=== PATIENT | female | born 1960 | race Caucasian/White ===

== ENCOUNTER 2020-12-18 21:18 | IRF | payer OTHER, SELFPAY ==
--- NOTE | ~2020-12-18 | CT_ITS ---
EXAMINATION: CT abdomen pelvis wo/w con EXAM DATE: 12/25/2020 14:03 INDICATION: Microhematuria. TECHNIQUE: Spiral CT of the abdomen and pelvis was performed without contrast. The patient was then injected with small bolus intravenous Omnipaque 350, followed by delay of approximately 10 minutes to allow collecting system to opacify. A post contrast scan abdomen and pelvis was performed during inj ection of remaining contrast. A total of 130 cc intravenous contrast was administered. The dose-qiana th product (DLP) for this examination was 2628.95 mGy-cm. The exposure was tailored according to pat ient size (auto mA exposure control), and iterative reconstruction (ASIR) was used as additional dose reduction technique. Correlation is made to KUB same date. FINDINGS: There is no hydronephrosis or nephrolithiasis. The kidneys enhance symmetrically. There a re no suspicious renal lesions. The calyces and opacified portions of ureters are unremarkable, with out filling defects or focal suspicious strictures. The bladder is unremarkable. The uterus is ante verted with small amount of gas in the endometrial cavity. Has been recent instrumentation? The liver, spleen, adrenal glands and pancreas are unremarkable. Gallbladder is unremarkable. No bi liary obstruction. There is no retroperitoneal or pelvic lymphadenopathy. There is moderate scatte red arteriosclerotic disease. The appendix is not positively visualized. There is no pericecal inflammatory change to suggest appe ndicitis. The stomach and small bowel are unremarkable. There is moderate amount of colonic stool. No free intraperitoneal gas. The heart is normal in size. There are no pericardial or pleural e ffusions. The lung bases are unremarkable. There are no osteoblastic or osteolytic lesions identifi ed. IMPRESSION: 1. Endometrial cavity gas, could be sign of recent instrumentation or endometritis. 2. Otherwise unremarkable genitourinary system. Reviewed, dictated and finalized at location A. IMPRESSION: 1. Endometrial cavity gas, could be sign of recent instrumentation or endometr itis. 2. Otherwise unremarkable genitourinary system.
--- NOTE | ~2020-12-18 | XR_ITS ---
XR abdomen/kub 1V 12/25/2020 13:42 Indication: Microhematuria Procedure: KUB Comparison: No prior studies for comparison. Findings: Bowel gas pattern is nonobstructive. Moderate colonic fecal loading. There is a calcificati on in the right mid abdomen at the L3 level, possibly UPJ stone measuring 3 mm. Moderate lumbar spond ylosis with dextroscoliosis. Impression: 1: Possible 3 mm right UPJ stone at the L3 level. Reviewed, dictated and finalized at location A. Impression: 1: Possible 3 mm right UPJ stone at the L3 level.
--- NOTE | 2020-12-18 20:06 | ADMGEN ---
This patient, Vanessa Mahajan, was admitted to [facility] Room 230-02 at 1940. Patient/family oriented to hospital policies and general routines including ID bracelet, bed and alarms, visiting hours, pain management, procedures, bathroom and other care routines, personal items, smoking policy, room service/diet, and visiting hours. Information on how to activate the Rapid Response Team has been discussed. Patient/Family are encouraged to report perceived risks to care and to ask questions if they do not understand what they are told or what they should do.
[2020-12-18 20:38] VITALS: BP 147/60; PULSE 70; RESP 20; TEMP 35.9; O2SAT 98; BMI 32.6
[2020-12-18 21:47] LABS: Hemoglobin A1C 9.6 % (<5.7)
[2020-12-18] MEDS: INSULIN GLARGINE (*BKC) 100 UNITS/ML 24 UNITS SUB-Q (21:59)
[2020-12-18 22:03] LABS: Glucose Point of Care 121 (65-105)
[2020-12-19 05:24] VITALS: BP 146/69; PULSE 65; RESP 22; TEMP 36.2; O2SAT 98
[2020-12-19 05:28] LABS: Basophils Percent Auto 0.4 % (0.2-1.2); Eosinophils Absolute Auto 0.2 K/mm3 (0-0.3); Hematocrit 23.6 % (37.0-47.0); Hemoglobin 7.2 g/dL (12.0-15.0); Immature Granulocyte Absolute 0.05 K/mm3 (0.00-0.031); Immature Granulocyte Percent A 0.7 % (0-0.5); Lymphocytes Absolute Auto 1.62 K/mm3 (0.9-3.2); Mean Corpuscular HGB Conc 30.5 g/dl (32-36); Mean Corpuscular Hemoglobin 28.7 pg (26-34); Mean Platelet Volume 9.4 fl (7.4-10.4); Monocytes Absolute Auto 0.6 K/mm3 (0.1-0.6); Monocytes Percent Auto 7.9 % (2.6-8.5); Neutrophils Absolute Auto 4.6 K/mm3 (1.3-6.7); Platelet Count Result 259 k/mm3 (150-375); Red Blood Count 2.51 M/mm3 (4.2-5.4); Red Cell Distribution Width 17.2 % (11.5-14.5); White Blood Count 7.1 K/mm3 (4.5-10.0)
[2020-12-19 05:29] LABS: Anion Gap -3 mmol/L (8-16); Blood Urea Nitrogen 19 mg/dL (7-17); Calcium 7.4 mg/dL (8.4-10.2); Carbon Dioxide 36 mmol/L (22-30); Chloride 107 mmol/L (98-107); Estimated CRCL calculation 88 ml/min; Estimated Glomerular Filt Rate > 60; Glucose 85 mg/dL (65-105); Potassium 3.8 mmol/L (3.4-5.0); Sodium 140 mmol/L (137-145)
[2020-12-19 06:16] LABS: Glucose Point of Care 84 (65-105)
[2020-12-19 07:15] LABS: Hemoglobin A1C 9.5 % (<5.7)
[2020-12-19] MEDS: ENOXAPARIN 40 MG/0.4 ML SYRINGE SUB-Q (09:02)
[2020-12-19] MEDS: ASPIRIN 325 MG ENTERIC TABLET PO (09:03)
[2020-12-19] MEDS: ATORVASTATIN 10 MG TABLET PO (09:03)
[2020-12-19] MEDS: POTASSIUM CHLORIDE 20 MEQ TABLET.ER PO (09:03)
[2020-12-19] MEDS: BUMETANIDE 1 MG TABLET 2 MG PO (09:03)
[2020-12-19] MEDS: LOSARTAN POTASSIUM 25 MG TABLET PO (09:03)
[2020-12-19] MEDS: INSULIN ASPART (*BKC) 100 UNITS/ML SUB-Q (09:22)
--- NOTE | 2020-12-19 09:23 | WPDREHABHP ---
H&P: HPI History of Present Illness Date/Time: 12/19/20 09:23 Chief Complaint: RIGHT BKA, UNCONTROLED DM Narrative: The patient is a 60 yo female with a past medical history of COPD,CRI, uncontrolled DM, HTN, HLD, and severe PVD who presented to [facility] on 12/07/2020 with right lower extremity diabetic foot infection. Podiatry was consulted and patient underwent an I&D and midfoot amputation on 12/08/2020 with for acute osteomyelitis and septic arthritis. Infectious Disease Dr Sibley was also consulted and place the patient on IV antibiotics. The wound continued to deteriorate and vascular surgeon, Dr Ryan was consulted. On 12/11/2020 patient underwent a right below-knee amputation by Dr. roman iverson. Postoperatively patient experienced the followin. acute blood loss anemia hemoglobin was 7.6 protocol did not warrant transfusion until below 7. 2.Hyponatremia which resolved. 3. Acute postoperative pain currently pain is managed 4. hypocalcemia was repleted and currently remains low. 5. Uncontrolled diabetes with constant monitoring and adjustments. 6. Left arm thrombophlebitis patient was started on IV vancomycin which infiltrated causing the phlebitis. Patient will be discharged on doxycycline 100 mg b.i.d. times 10 days. Of note this was not on the transfer order sheet. I spoke with Dr. Greene office to determine if doxycycline was to be ordered at time of discharge. They responded that ID wanted Doxy for treatment and provided me with the dosing. 7. Hypoalbuminemia not resolved, will need ongoing monitoring. The patient will require both physical therapy and occupational therapy to return to her prior level of independence. Given the patient's uncontrolled diabetes mellitus and severe peripheral vascular disease the potential for declining condition and readmission are high. This warrants inpatient physician monitoring and management. Joie are to be removed in 5 weeks from surgery day. IV vancomycin was discontinued on 12/16/2020 patient will be starting doxycycline 100 mg b.i.d. times 10 days for the thrombophlebitis. Patient will be discharged on Lovenox for DVT prophylaxis until 30 days from 12/18/2020. COVID: The patient has not traveled outside the [place] are had contact with someone who is ill at his travel outside the [place] in the past 21 days. The patient has not traveled to an area of the [place] that is experiencing known transmission of the Coronavirus has not had close personal contact with anyone that has had exposure. The patient does not have a fever. The patient is not experiencing lowers prior gilbert illness symptoms. The patient does however have COPD at baseline. COVID test negative on 12/18/2020. Therapy was initiated at the acute care facility and the patient transferred to us from [facility] on 12/18/2020. HISTORY OF PRESENT ILLNESS: The patient's primary rehab impairment category is amputation lower extremity The etiologic diagnosis is severe peripheral vascular diagnosis with right below-knee amputation I saw this patient [id number] on 12/19/2020 Therapy was initiated at the acute care facility and the patient transferred to us from [facility] on 12/18/2020 FALLS OR SURGERIES: The patient has had major surgeries in the 100 days prior to admission. a midfoot amputation on 12/08/2020. Patient also underwent a right below-knee amputation on 12/11/2020. She has had no falls. She has had no falls with injury in the past year PRIOR LEVEL OF FUNCTION: Eating was [INDEPENDENT] Oral Care was [INDEPENDENT] Toileting Hygiene was [INDEPENDENT] Shower/Bathing was [INDEPENDENT] Upper Body Dressing was [INDEPENDENT] Lower Body Dressing was [INDEPENDENT] Donning/[place] Footwear was [INDEPENDENT] Rolling Left and Right was [INDEPENDENT] Sit to Lying was [INDEPENDENT] Lying to Sitting was [INDEPENDENT] Sit to Stand was [INDEPE
[2020-12-19] MEDS: DOXYCYCLINE HYCLATE 100 MG TABLET PO ×2 (10:41→21:27)
[2020-12-19 11:56] LABS: Glucose Point of Care 181 (65-105)
[2020-12-19] MEDS: INSULIN ASPART (*BKC) 100 UNITS/ML 10 UNITS SUB-Q (12:00)
[2020-12-19 12:59] VITALS: BMI 32.6
[2020-12-19 14:00] VITALS: BP 144/58; PULSE 63; RESP 18; TEMP 36.7; O2SAT 100
[2020-12-19 17:08] LABS: Glucose Point of Care 82 (65-105)
[2020-12-19 20:29] VITALS: BP 140/61; PULSE 86; RESP 20; TEMP 36.6; O2SAT 99
[2020-12-19 20:54] LABS: Glucose Point of Care 146 (65-105)
[2020-12-19] MEDS: INSULIN GLARGINE (*BKC) 100 UNITS/ML 24 UNITS SUB-Q (21:27)
[2020-12-20 05:26] VITALS: BP 144/64; PULSE 57; RESP 22; TEMP 36.3; O2SAT 100
[2020-12-20 06:53] LABS: Glucose Point of Care 119 (65-105)
[2020-12-20 08:00] VITALS: PULSE 57; RESP 22; O2SAT 100
[2020-12-20] MEDS: ENOXAPARIN 40 MG/0.4 ML SYRINGE SUB-Q (09:13)
[2020-12-20] MEDS: LOSARTAN POTASSIUM 25 MG TABLET PO (09:13)
[2020-12-20] MEDS: ATORVASTATIN 10 MG TABLET PO (09:13)
[2020-12-20] MEDS: BUMETANIDE 1 MG TABLET 2 MG PO (09:14)
[2020-12-20] MEDS: ASPIRIN 325 MG ENTERIC TABLET PO (09:14)
[2020-12-20] MEDS: POTASSIUM CHLORIDE 20 MEQ TABLET.ER PO (09:14)
[2020-12-20] MEDS: DOXYCYCLINE HYCLATE 100 MG TABLET PO ×2 (09:14→20:55)
--- NOTE | 2020-12-20 09:20 | RPD ---
INDIVIDUALIZED PLAN OF CARE FOR Vanessa Mahajan Brief Synthesis of Pre-Admission Screen, Post-Admission Evaluation and Therapy Evaluations: The patient presents to rehab with severe peripheral vascular disease. Comorbidities include s/p right [id number], hypertension, chronic obstructive pulmonary disease, chronic renal insufficiency, uncontrolled diabetes mellitus, hyperlipidemia, left arm thrombophlebitis, hypoalbuminemia, normocytic anemia, hyponatremia, acute blood loss anemia, acute postoperative pain, severe sepsis. The patient requires physician services for medical oversight, management of post-op complications in the setting of present comorbidities, management of diabetes mellitus diagnosis, and pain management. Post-op complications have included acute blood loss anemia, uncontrolled diabetes mellitus, hypocalcemia, hyponatremia, hypoalbuminemia, and left arm thrombophlebitis. The patient requires nursing services for anticoagulation therapy, diabetes training, DVT prophylactics, IV administration PRN, infection protection, medication management and education, pressure relief, and wound care. 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 Treatments may include: Therapeutic Exercise, Gait Training, Neuromuscular Re-education, Transfer Training, Community Reintegration, Bed Mobility, Patient/Family Education, Wheelchair Mobility Group Therapy/Concurrent Therapy Rationales: -Improve attention span during functional activities in a distracted environment. -Enhance problem solving and/or adequate judgment skills during functional activities in a distracted environment. -Promote increased safety awareness in a distracted environment to reduce fall risk with functional tasks, transfers, and ambulation to allow a more safe, self-sufficient return to the home environment. -Improve dynamic balance skills to promote safety and independence with functional activities in a distracted environment for maximum gain. Occupational Therapy: 5 days per week for 90 minutes for the anticipated length of stay. Treatments may include: Therapeutic Exercise, Therapeutic Activity, Cognitive Training, Self-Care Transfer Training, Community Reintegration, Home Management, Patient/Family Education, Wheelchair Mobility Training, Energy Conservation Training Group Therapy/Concurrent Therapy Rationales: -Allow therapist to observe and teach generalization and carry-over of skills learned in individual therapy. -Enhance problem solving and sequencing skills during therapeutic activities in a distracted environment. -Promote increased safety awareness in a realistic setting to reduce fall risk with functional tasks due to visual and verbal distractions. -Increase functional level with ADLs, ADL transfers and use of adaptive equipment through therapeutic activities with others while promoting safety to allow a more safe, self-sufficient return home. Medical Prognosis: Good Anticipated Length of Stay: 14 days Rehab Goals: Eating Goal: 06-Independent Oral Hygiene Goal: 06-Independent Toileting Hygiene Goal: 02-Substantial/Maximal Assistance Shower/Bathe Self Goal: 04-Supervision or Touching Assistance Upper Body Dressing Goal: 05-Setup or Clean Up Assistance Lower Body Dressing Goal: 05-Setup or Clean Up Assistance Putting On/Taking Off Footwear Goal: 05-Setup or Clean Up Assistance Rolling Left and Right Goal: 06-Independent Sit to Lying Goal: 06-Independent Lying to Sitting on Side of Bed Goal: 06-Independent Sit to Stand Goal: 03-Partial/Moderate Assistance Chair/[id number] Transfer Goal: 03-Partial/Moderate Assistance Toilet Transfer Goal: 03-Partial/Moderate Assistance Car Transfer Goal: 03-Partial/Moderate Assist
--- NOTE | 2020-12-20 09:20 | WPDNEURORHBP ---
Subjective Date/time seen: 12/20/20 09:20 Interval history: Patient underwent a RBKA and has been admitted for TRC. Patient mood is somewhat flat. Patient voices no complaints. Review of Systems Review of Systems: All systems reviewed & are unremarkable except as noted in HPI and below Genitourinary: Genitourinary: Reports urinary incontinence and Reports urinary urgency Functional Status Transfers Ability Ability to Transfer In/Out of Chair: Maximum Assistance X 2 Exam Narrative: Exam Narrative: Patient is in no acute distress. Head is normocephalic. Patient is wearing glasses. Speech is fluent. Patient is edentulous. Heart rate and rhythm is regular without murmurs. Lungs sounds are distant but clear. Abdomen is obese nontender positive bowel sounds. Musculoskeletal exam right upper extremity strength is 4+ out of 5 Except for right 4th and 5th digits which reveal some muscle wasting and decreased sensation. Sensory losses noted to the hands and feet in a diabetic neuropathy pattern. Left upper extremity is in a stockinette with moderate/min edema noted from elbow down. Redness is noted with minimal warmth is present. Left lower extremity strength is essentially 3+ to 4-. Right lower extremity reveals below-knee amputation. At time of dictation incision was not observed. Objective Data Vital Signs Vital Signs: Vital Signs - 24 hr 12/19/20 14:00 12/19/20 20:29 12/20/20 05:26 Temperature 36.7 C 36.6 C 36.3 C L Pulse Rate 63 86 57 L Respiratory Rate 18 20 22 H Blood Pressure 144/58 H 140/61 144/64 H Pulse Oximetry 100 99 100 Intake/Output Intake/Output: Intake & Output 12/17/20 12/18/20 12/19/20 12/20/20 23:59 23:59 23:59 23:59 Intake Total 720 Balance 720 Meds/Results Medications: Active Medications Generic Name Dose Route Start Last Admin Trade Name Freq PRN Reason Stop Dose Admin Hydrocodone Bitart/Acetaminophen 1 tab 12/18/20 21:06 Hydrocodone/Acetaminophen (*Crx) 5-325 Mg Tablet PO Q4H PRN Pain Rated 4-6 Aspirin 325 mg 12/19/20 09:00 12/20/20 09:14 Aspirin 325 Mg Enteric Tablet PO 325 mg DAILY JL Administration Atorvastatin Calcium 10 mg 12/19/20 09:00 12/20/20 09:13 Atorvastatin 10 Mg Tablet PO 10 mg DAILY JL Administration Bumetanide 2 mg 12/19/20 09:00 12/20/20 09:14 Bumetanide 1 Mg Tablet PO 2 mg DAILY JL Administration Dextrose 12.5 gm 12/18/20 21:09 Dextrose 50% 25 Gm/50 Ml Syringe IV PUSH PRN PRN Hypoglycemia Protocol Doxycycline Hyclate 100 mg 12/19/20 09:45 12/20/20 09:14 Doxycycline Hyclate 100 Mg Tablet PO 12/28/20 21:01 100 mg Q12HR JL Administration Enoxaparin Sodium 40 mg 12/19/20 09:00 12/20/20 09:13 Enoxaparin 40 Mg/0.4 Ml Syringe SUB-Q 40 mg DAILY JL Administration Glucagon 1 mg 12/18/20 21:09 Glucagon For Inj 1 Mg Vial IM PRN PRN Hypoglycemia Protocol Glucose 15 gm 12/18/20 21:09 Glucose Oral Gel 15 Gm Of Glucse In 37.5 Gm Tube PO PRN PRN Hypoglycemia Protocol Dextrose 1,000 mls @ 100 mls/hr 12/18/20 21:09 Dextrose 5% 1,000 Ml IVPB PRN PRN Hypoglycemia Protocol Insulin Aspart 4 - 8 units 12/19/20 17:00 12/20/20 09:16 Insulin Aspart (*Bkc) 100 Units/Ml SUB-Q Not Given TIDWM [facility] Protocol Insulin Glargine 24 units 12/18/20 21:15 12/19/20 21:27 Insulin Glargine (*Bkc) 100 Units/Ml SUB-Q 24 units HS JL Administration Losartan Potassium 25 mg 12/19/20 09:00 12/20/20 09:13 Losartan Potassium 25 Mg Tablet PO 25 mg DAILY JL Administration Potassium Chloride 20 meq 12/19/20 08:00 12/20/20 09:14 Potassium Chloride 20 Meq Tablet.Er PO 20 meq DAILY@0800 JL Administration Senna/Docusate Sodium 1 tab 12/18/20 21:06 Senna/Docusate Sodium Tablet PO BID PRN Constipation Labs Labs: Laboratory Results - last 24 hr 12/19/20
[2020-12-20 12:13] LABS: Glucose Point of Care 143 (65-105)
--- NOTE | 2020-12-20 12:16 | PC.NURSE ---
Patient voided large amounts of urine in bedpan and bladder scanned and got 221 cc on screen. Will continue to monitor.
--- NOTE | 2020-12-20 12:27 | WPDNEURORHBP ---
Subjective Date/time seen: 12/20/20 12:27 Interval history: Patient underwent a RBKA and has been admitted for TRC. Patient mood is somewhat flat. Pain to LUE from phlebitis is improving. Review of Systems Review of Systems: All systems reviewed & are unremarkable except as noted in HPI and below Genitourinary: Genitourinary: Reports urinary incontinence and Reports urinary urgency Functional Status Transfers Ability Ability to Transfer In/Out of Chair: Maximum Assistance X 2 Exam Narrative: Exam Narrative: Patient is in no acute distress. Head is normocephalic. Patient is wearing glasses. Speech is fluent. Patient is edentulous. Heart rate and rhythm is regular without murmurs. Lungs sounds are distant but clear. Abdomen is obese nontender positive bowel sounds. Musculoskeletal exam right upper extremity strength is 4+ out of 5 Except for right 4th and 5th digits which reveal some muscle wasting and decreased sensation. Sensory losses noted to the hands and feet in a diabetic neuropathy pattern. Left upper extremity is in a stockinette with improving edema. Fingers remained quite swollen. Redness is noted. No warmth is present. Left lower extremity strength is essentially 3+ to 4-. Right lower extremity reveals below-knee amputation. Patient is requiring max assistance of 2 for transfers. Patient is incontinent at times. Objective Data Vital Signs Vital Signs: Vital Signs - 24 hr 12/19/20 14:00 12/19/20 20:29 12/20/20 05:26 Temperature 36.7 C 36.6 C 36.3 C L Pulse Rate 63 86 57 L Respiratory Rate 18 20 22 H Blood Pressure 144/58 H 140/61 144/64 H Pulse Oximetry 100 99 100 Intake/Output Intake/Output: Intake & Output 12/17/20 12/18/20 12/19/20 12/20/20 23:59 23:59 23:59 23:59 Intake Total 720 120 Balance 720 120 Meds/Results Medications: Active Medications Generic Name Dose Route Start Last Admin Trade Name Freq PRN Reason Stop Dose Admin Hydrocodone Bitart/Acetaminophen 1 tab 12/18/20 21:06 Hydrocodone/Acetaminophen (*Crx) 5-325 Mg Tablet PO Q4H PRN Pain Rated 4-6 Aspirin 325 mg 12/19/20 09:00 12/20/20 09:14 Aspirin 325 Mg Enteric Tablet PO 325 mg DAILY JL Administration Atorvastatin Calcium 10 mg 12/19/20 09:00 12/20/20 09:13 Atorvastatin 10 Mg Tablet PO 10 mg DAILY JL Administration Bumetanide 2 mg 12/19/20 09:00 12/20/20 09:14 Bumetanide 1 Mg Tablet PO 2 mg DAILY JL Administration Dextrose 12.5 gm 12/18/20 21:09 Dextrose 50% 25 Gm/50 Ml Syringe IV PUSH PRN PRN Hypoglycemia Protocol Doxycycline Hyclate 100 mg 12/19/20 09:45 12/20/20 09:14 Doxycycline Hyclate 100 Mg Tablet PO 12/28/20 21:01 100 mg Q12HR JL Administration Enoxaparin Sodium 40 mg 12/19/20 09:00 12/20/20 09:13 Enoxaparin 40 Mg/0.4 Ml Syringe SUB-Q 40 mg DAILY JL Administration Glucagon 1 mg 12/18/20 21:09 Glucagon For Inj 1 Mg Vial IM PRN PRN Hypoglycemia Protocol Glucose 15 gm 12/18/20 21:09 Glucose Oral Gel 15 Gm Of Glucse In 37.5 Gm Tube PO PRN PRN Hypoglycemia Protocol Dextrose 1,000 mls @ 100 mls/hr 12/18/20 21:09 Dextrose 5% 1,000 Ml IVPB PRN PRN Hypoglycemia Protocol Insulin Aspart 4 - 8 units 12/19/20 17:00 12/20/20 09:16 Insulin Aspart (*Bkc) 100 Units/Ml SUB-Q Not Given TIDWM JL Protocol Insulin Glargine 24 units 12/18/20 21:15 12/19/20 21:27 Insulin Glargine (*Bkc) 100 Units/Ml SUB-Q 24 units HS JL Administration Losartan Potassium 25 mg 12/19/20 09:00 12/20/20 09:13 Losartan Potassium 25 Mg Tablet PO 25 mg DAILY JL Administration Potassium Chloride 20 meq 12/19/20 08:00 12/20/20 09:14 Potassium Chloride 20 Meq Tablet.Er PO 20 meq DAILY@0800 JL Administration Senna/Docusate Sodium 1 tab 12/18/20 21:06 Senna/Docusate Sodium Tablet PO BID PRN Constipation La
[2020-12-20 14:00] VITALS: BP 142/64; PULSE 76; RESP 20; TEMP 36.6; O2SAT 96
[2020-12-20 16:42] LABS: Glucose Point of Care 243 (65-105)
[2020-12-20] MEDS: INSULIN ASPART (*BKC) 100 UNITS/ML SUB-Q (17:44)
[2020-12-20 20:30] VITALS: PULSE 76; RESP 20; O2SAT 96
[2020-12-20] MEDS: INSULIN GLARGINE (*BKC) 100 UNITS/ML 24 UNITS SUB-Q (20:55)
[2020-12-20 21:03] LABS: Glucose Point of Care 270 (65-105)
[2020-12-20 22:00] VITALS: BP 133/59; PULSE 58; RESP 16; TEMP 36.6; O2SAT 98
[2020-12-21 04:59] VITALS: BP 146/65; PULSE 58; RESP 18; TEMP 36.4; O2SAT 100
[2020-12-21 06:46] LABS: Glucose Point of Care 92 (65-105)
[2020-12-21 08:00] VITALS: PULSE 58; RESP 18; O2SAT 100
[2020-12-21] MEDS: DOXYCYCLINE HYCLATE 100 MG TABLET PO ×2 (08:54→21:24)
[2020-12-21] MEDS: POTASSIUM CHLORIDE 20 MEQ TABLET.ER PO (08:54)
[2020-12-21] MEDS: ASPIRIN 325 MG ENTERIC TABLET PO (08:54)
[2020-12-21] MEDS: ENOXAPARIN 40 MG/0.4 ML SYRINGE SUB-Q (08:54)
[2020-12-21] MEDS: ATORVASTATIN 10 MG TABLET PO (08:55)
[2020-12-21] MEDS: LOSARTAN POTASSIUM 25 MG TABLET PO (08:55)
[2020-12-21] MEDS: BUMETANIDE 1 MG TABLET 2 MG PO (08:55)
--- NOTE | 2020-12-21 10:20 | WPDNEURORHBP ---
Subjective Date/time seen: 12/21/20 10:20 Interval history: Patient underwent a RBKA and has been admitted for TRC. Patient mood is somewhat flat. Pain to LUE from phlebitis is improving. Review of Systems Review of Systems: All systems reviewed & are unremarkable except as noted in HPI and below Genitourinary: Genitourinary: Reports nocturia and Reports urinary incontinence Functional Status Transfers Ability Ability to Transfer In/Out of Chair: Maximum Assistance X 2 Exam Narrative: Exam Narrative: Patient is in no acute distress. Head is normocephalic. Patient is wearing glasses. Speech is fluent. Patient is edentulous. Heart rate and rhythm is regular without murmurs. Lungs sounds are distant but clear. Abdomen is obese nontender positive bowel sounds. Musculoskeletal exam right upper extremity strength is 4+ out of 5 Except for right 4th and 5th digits which reveal some muscle wasting and decreased sensation. Sensory losses noted to the hands and feet in a diabetic neuropathy pattern. Left upper extremity is in a stockinette with improving edema. Fingers remained quite swollen. Redness is noted. No warmth is present. Left lower extremity strength is essentially 3+ to 4-. Right lower extremity reveals below-knee amputation. Patient is requiring min assist with sliding board transfers. Patient is incontinent at times. Objective Data Vital Signs Vital Signs: Vital Signs - 24 hr 12/20/20 14:00 12/20/20 20:30 12/20/20 22:00 Temperature 36.6 C 36.6 C Pulse Rate 76 76 58 L Respiratory Rate 20 20 16 Blood Pressure 142/64 H 133/59 L Pulse Oximetry 96 96 98 12/21/20 04:59 Temperature 36.4 C Pulse Rate 58 L Respiratory Rate 18 Blood Pressure 146/65 H Pulse Oximetry 100 Intake/Output Intake/Output: Intake & Output 12/18/20 12/19/20 12/20/20 12/21/20 23:59 23:59 23:59 23:59 Intake Total 720 600 240 Balance 720 600 240 Meds/Results Medications: Active Medications Generic Name Dose Route Start Last Admin Trade Name Freq PRN Reason Stop Dose Admin Hydrocodone Bitart/Acetaminophen 1 tab 12/18/20 21:06 Hydrocodone/Acetaminophen (*Crx) 5-325 Mg Tablet PO Q4H PRN Pain Rated 4-6 Aspirin 325 mg 12/19/20 09:00 12/21/20 08:54 Aspirin 325 Mg Enteric Tablet PO 325 mg DAILY JL Administration Atorvastatin Calcium 10 mg 12/19/20 09:00 12/21/20 08:55 Atorvastatin 10 Mg Tablet PO 10 mg DAILY JL Administration Bumetanide 2 mg 12/19/20 09:00 12/21/20 08:55 Bumetanide 1 Mg Tablet PO 2 mg DAILY JL Administration Dextrose 12.5 gm 12/18/20 21:09 Dextrose 50% 25 Gm/50 Ml Syringe IV PUSH PRN PRN Hypoglycemia Protocol Doxycycline Hyclate 100 mg 12/19/20 09:45 12/21/20 08:54 Doxycycline Hyclate 100 Mg Tablet PO 12/28/20 21:01 100 mg Q12HR JL Administration Enoxaparin Sodium 40 mg 12/19/20 09:00 12/21/20 08:54 Enoxaparin 40 Mg/0.4 Ml Syringe SUB-Q 40 mg DAILY JL Administration Glucagon 1 mg 12/18/20 21:09 Glucagon For Inj 1 Mg Vial IM PRN PRN Hypoglycemia Protocol Glucose 15 gm 12/18/20 21:09 Glucose Oral Gel 15 Gm Of Glucse In 37.5 Gm Tube PO PRN PRN Hypoglycemia Protocol Dextrose 1,000 mls @ 100 mls/hr 12/18/20 21:09 Dextrose 5% 1,000 Ml IVPB PRN PRN Hypoglycemia Protocol Insulin Aspart 4 - 8 units 12/19/20 17:00 12/21/20 08:55 Insulin Aspart (*Bkc) 100 Units/Ml SUB-Q Not Given TIDWM JL Protocol Insulin Glargine 24 units 12/18/20 21:15 12/20/20 20:55 Insulin Glargine (*Bkc) 100 Units/Ml SUB-Q 24 units HS JL Administration Losartan Potassium 25 mg 12/19/20 09:00 12/21/20 08:55 Losartan Potassium 25 Mg Tablet PO 25 mg DAILY JL Administration Potassium Chloride 20 meq 12/19/20 08:00 12/21/20 08:54 Potassium Chloride 20 Meq Tablet.Er PO 20 meq DAILY@0800 JL Administration Senna/Docusa
[2020-12-21 12:01] LABS: Glucose Point of Care 105 (65-105)
[2020-12-21 14:00] VITALS: BP 158/69; PULSE 86; RESP 18; TEMP 36.4; O2SAT 100
--- NOTE | 2020-12-21 16:34 | PC.NURSE ---
Patient states doesnt realize she needs to void and then realizes she is wet. Depends changed numerous times throughout the shift.
[2020-12-21 16:51] LABS: Glucose Point of Care 187 (65-105)
[2020-12-21] MEDS: INSULIN GLARGINE (*BKC) 100 UNITS/ML 24 UNITS SUB-Q (21:24)
[2020-12-21 21:55] LABS: Glucose Point of Care 282 (65-105)
[2020-12-21 22:00] VITALS: BP 154/69; PULSE 66; RESP 18; TEMP 36.7; O2SAT 96
[2020-12-22 06:00] VITALS: BP 138/85; PULSE 86; RESP 18; TEMP 36.3; O2SAT 100
[2020-12-22 06:53] LABS: Glucose Point of Care 55 (65-105)
[2020-12-22 06:53] LABS: Glucose Point of Care 47 (65-105)
[2020-12-22 06:53] LABS: Glucose Point of Care 45 (65-105)
[2020-12-22 06:54] LABS: Glucose Point of Care 85 (65-105)
--- NOTE | 2020-12-22 08:42 | WPDNEURORHBP ---
Subjective Date/time seen: 12/22/20 08:42 Interval history: Patient underwent a RBKA and has been admitted for TRC. Blood sugar was low. Patient did not have any symptoms of hypoglycemia but being cold. Patient mood is somewhat flat. Pain to LUE from phlebitis is improving. Review of Systems Review of Systems: All systems reviewed & are unremarkable except as noted in HPI and below Genitourinary: Genitourinary: Reports nocturia, Reports urinary incontinence and Reports urinary urgency Functional Status Transfers Ability Ability to Transfer In/Out of Chair: Maximum Assistance X 2 Exam Narrative: Exam Narrative: Patient is in no acute distress. Head is normocephalic. Patient is wearing glasses. Speech is fluent. Patient is edentulous. Heart rate and rhythm is regular without murmurs. Lungs sounds are distant but clear. Abdomen is obese nontender positive bowel sounds. Musculoskeletal exam right upper extremity strength is 4+ out of 5 Except for right 4th and 5th digits which reveal some muscle wasting and decreased sensation. Sensory losses noted to the hands and feet in a diabetic neuropathy pattern. Left upper extremity is in a stockinette with improving edema. Fingers swelling is down. Mininal redness is noted. No warmth is present. Left lower extremity strength is essentially 3+ to 4-. Right lower extremity reveals below-knee amputation. Patient is requiring min assist with sliding board transfers. Patient is incontinent at times. Bladder scans reviewed. Patient has mild urinary retention but is able to void. Will continue PVR Objective Data Vital Signs Vital Signs: Vital Signs - 24 hr 12/21/20 14:00 12/21/20 22:00 12/22/20 06:00 Temperature 36.4 C L 36.7 C 36.3 C L Pulse Rate 86 66 86 Respiratory Rate 18 18 18 Blood Pressure 158/69 H 154/69 H 138/85 Pulse Oximetry 100 96 100 Intake/Output Intake/Output: Intake & Output 12/19/20 12/20/20 12/21/20 12/22/20 23:59 23:59 23:59 23:59 Intake Total 720 600 720 Balance 720 600 720 Meds/Results Medications: Active Medications Generic Name Dose Route Start Last Admin Trade Name Freq PRN Reason Stop Dose Admin Hydrocodone Bitart/Acetaminophen 1 tab 12/18/20 21:06 Hydrocodone/Acetaminophen (*Crx) 5-325 Mg Tablet PO Q4H PRN Pain Rated 4-6 Aspirin 325 mg 12/19/20 09:00 12/21/20 08:54 Aspirin 325 Mg Enteric Tablet PO 325 mg DAILY JL Administration Atorvastatin Calcium 10 mg 12/19/20 09:00 12/21/20 08:55 Atorvastatin 10 Mg Tablet PO 10 mg DAILY JL Administration Bumetanide 2 mg 12/19/20 09:00 12/21/20 08:55 Bumetanide 1 Mg Tablet PO 2 mg DAILY JL Administration Dextrose 12.5 gm 12/18/20 21:09 Dextrose 50% 25 Gm/50 Ml Syringe IV PUSH PRN PRN Hypoglycemia Protocol Doxycycline Hyclate 100 mg 12/19/20 09:45 12/21/20 21:24 Doxycycline Hyclate 100 Mg Tablet PO 12/28/20 21:01 100 mg Q12HR JL Administration Enoxaparin Sodium 40 mg 12/19/20 09:00 12/21/20 08:54 Enoxaparin 40 Mg/0.4 Ml Syringe SUB-Q 40 mg DAILY JL Administration Glucagon 1 mg 12/18/20 21:09 Glucagon For Inj 1 Mg Vial IM PRN PRN Hypoglycemia Protocol Glucose 15 gm 12/18/20 21:09 Glucose Oral Gel 15 Gm Of Glucse In 37.5 Gm Tube PO PRN PRN Hypoglycemia Protocol Dextrose 1,000 mls @ 100 mls/hr 12/18/20 21:09 Dextrose 5% 1,000 Ml IVPB PRN PRN Hypoglycemia Protocol Insulin Aspart 4 - 8 units 12/19/20 17:00 12/22/20 07:55 Insulin Aspart (*Bkc) 100 Units/Ml SUB-Q Not Given TIDWM JL Protocol Insulin Glargine 24 units 12/18/20 21:15 12/21/20 21:24 Insulin Glargine (*Bkc) 100 Units/Ml SUB-Q 24 units HS JL Administration Losartan Potassium 25 mg 12/19/20 09:00 12/21/20 08:55 Losartan Potassium 25 Mg Tablet PO 25 mg DAILY JL Administration Potassium Chloride 20 meq 12/19/20 08:00 12/21/20
[2020-12-22] MEDS: ASPIRIN 325 MG ENTERIC TABLET PO (08:44)
[2020-12-22] MEDS: ATORVASTATIN 10 MG TABLET PO (08:44)
[2020-12-22] MEDS: DOXYCYCLINE HYCLATE 100 MG TABLET PO ×2 (08:44→21:23)
[2020-12-22] MEDS: POTASSIUM CHLORIDE 20 MEQ TABLET.ER PO (08:44)
[2020-12-22] MEDS: ENOXAPARIN 40 MG/0.4 ML SYRINGE SUB-Q (08:44)
[2020-12-22] MEDS: BUMETANIDE 1 MG TABLET 2 MG PO (08:44)
[2020-12-22] MEDS: LOSARTAN POTASSIUM 25 MG TABLET PO (08:44)
[2020-12-22 12:00] LABS: Glucose Point of Care 136 (65-105)
[2020-12-22 14:00] VITALS: BP 145/60; PULSE 72; RESP 16; TEMP 36.2; O2SAT 98
[2020-12-22 16:44] LABS: Glucose Point of Care 186 (65-105)
[2020-12-22 20:16] LABS: Glucose Point of Care 236 (65-105)
[2020-12-22] MEDS: INSULIN GLARGINE (*BKC) 100 UNITS/ML 20 UNITS SUB-Q (21:22)
[2020-12-22 22:00] VITALS: BP 144/61; PULSE 59; RESP 16; TEMP 36.6; O2SAT 99
[2020-12-23 06:00] VITALS: BP 152/66; PULSE 57; RESP 16; TEMP 36.8; O2SAT 99
[2020-12-23 06:17] LABS: Glucose Point of Care 133 (65-105)
[2020-12-23 08:00] VITALS: PULSE 57; RESP 16; O2SAT 99
[2020-12-23] MEDS: POTASSIUM CHLORIDE 20 MEQ TABLET.ER PO (08:55)
[2020-12-23] MEDS: ATORVASTATIN 10 MG TABLET PO (08:55)
[2020-12-23] MEDS: BUMETANIDE 1 MG TABLET 2 MG PO (08:55)
[2020-12-23] MEDS: ASPIRIN 325 MG ENTERIC TABLET PO (08:55)
[2020-12-23] MEDS: LOSARTAN POTASSIUM 25 MG TABLET PO (08:56)
[2020-12-23] MEDS: DOXYCYCLINE HYCLATE 100 MG TABLET PO ×2 (08:56→21:43)
[2020-12-23] MEDS: ENOXAPARIN 40 MG/0.4 ML SYRINGE SUB-Q (08:56)
--- NOTE | 2020-12-23 09:20 | PCPTNOTE ---
Vanessa Mahajan was evaluated for a slide board on 12/23/2020 by this physical therapist gift shop assistant. The slide board will resolve patient's mobility limitations and will be used for ADL's within the home. The patient can safely use the slide board. ?The slide board will resolve the patient?s mobility deficits, including decreased strength, balance, endurance, and non weight bearing precautions on R residual limb. Ansley Bradley, PROCESS DEVELOPMENT ASSOCIATE
--- NOTE | 2020-12-23 11:53 | WPDNEURORHBP ---
Subjective Date/time seen: 12/23/20 11:53 Interval history: Patient underwent a RBKA and has been admitted for TRC. Blood sugar was low. Patient did not have any symptoms of hypoglycemia but being cold. Blood sugars are elevated Patient mood is somewhat flat. Pain to LUE from phlebitis is improving. Review of Systems Review of Systems: All systems reviewed & are unremarkable except as noted in HPI and below Genitourinary: Genitourinary: Reports nocturia, Reports urinary incontinence and Reports urinary urgency Functional Status Transfers Ability Ability to Transfer In/Out of Chair: Moderate Assistance X 2 Exam Narrative: Exam Narrative: Patient is in no acute distress. Head is normocephalic. Patient is wearing glasses. Speech is fluent. Patient is edentulous. Heart rate and rhythm is regular without murmurs. Lungs sounds are distant but clear. Abdomen is obese nontender positive bowel sounds. Musculoskeletal exam right upper extremity strength is 4+ out of 5 Except for right 4th and 5th digits which reveal some muscle wasting and decreased sensation. Sensory losses noted to the hands and feet in a diabetic neuropathy pattern. Left upper extremity is in a stockinette with improving edema. Fingers swelling is down. Mininal redness is noted. No warmth is present. Left lower extremity strength is essentially 3+ to 4-. Right lower extremity reveals below-knee amputation. Patient is requiring min assist with sliding board transfers. Patient is incontinent at times. Bladder scans reviewed. Patient has mild urinary retention but is able to void. Will continue PVR. Patient incontinent at night with PVRs in 200s Objective Data Vital Signs Vital Signs: Vital Signs - 24 hr 12/22/20 14:00 12/22/20 22:00 12/23/20 06:00 Temperature 36.2 C L 36.6 C 36.8 C Pulse Rate 72 59 L 57 L Respiratory Rate 16 16 16 Blood Pressure 145/60 H 144/61 H 152/66 H Pulse Oximetry 98 99 99 12/23/20 08:00 Temperature Pulse Rate 57 L Respiratory Rate 16 Blood Pressure Pulse Oximetry 99 Intake/Output Intake/Output: Intake & Output 12/20/20 12/21/20 12/22/20 12/23/20 23:59 23:59 23:59 23:59 Intake Total 600 720 840 240 Balance 600 720 840 240 Meds/Results Medications: Active Medications Generic Name Dose Route Start Last Admin Trade Name Freq PRN Reason Stop Dose Admin Hydrocodone Bitart/Acetaminophen 1 tab 12/18/20 21:06 Hydrocodone/Acetaminophen (*Crx) 5-325 Mg Tablet PO Q4H PRN Pain Rated 4-6 Aspirin 325 mg 12/19/20 09:00 12/23/20 08:55 Aspirin 325 Mg Enteric Tablet PO 325 mg DAILY JL Administration Atorvastatin Calcium 10 mg 12/19/20 09:00 12/23/20 08:55 Atorvastatin 10 Mg Tablet PO 10 mg DAILY JL Administration Bumetanide 2 mg 12/19/20 09:00 12/23/20 08:55 Bumetanide 1 Mg Tablet PO 2 mg DAILY JL Administration Dextrose 12.5 gm 12/18/20 21:09 Dextrose 50% 25 Gm/50 Ml Syringe IV PUSH PRN PRN Hypoglycemia Protocol Doxycycline Hyclate 100 mg 12/19/20 09:45 12/23/20 08:56 Doxycycline Hyclate 100 Mg Tablet PO 12/28/20 21:01 100 mg Q12HR JL Administration Enoxaparin Sodium 40 mg 12/19/20 09:00 12/23/20 08:56 Enoxaparin 40 Mg/0.4 Ml Syringe SUB-Q 40 mg DAILY JL Administration Glucagon 1 mg 12/18/20 21:09 Glucagon For Inj 1 Mg Vial IM PRN PRN Hypoglycemia Protocol Glucose 15 gm 12/18/20 21:09 Glucose Oral Gel 15 Gm Of Glucse In 37.5 Gm Tube PO PRN PRN Hypoglycemia Protocol Dextrose 1,000 mls @ 100 mls/hr 12/18/20 21:09 Dextrose 5% 1,000 Ml IVPB PRN PRN Hypoglycemia Protocol Insulin Aspart 4 - 8 units 12/19/20 17:00 12/23/20 08:56 Insulin Aspart (*Bkc) 100 Units/Ml SUB-Q Not Given TIDWM [facility] Protocol Insulin Glargine 20 units 12/22/20 21:00 12/22/20 21:22 Insulin Glargine (*Bkc) 100 Units/Ml SUB-Q 20 units HS JL Administrati
[2020-12-23 12:18] LABS: Glucose Point of Care 147 (65-105)
[2020-12-23 14:00] VITALS: BP 148/61; PULSE 82; RESP 18; TEMP 36.6; O2SAT 98
[2020-12-23 17:04] LABS: Glucose Point of Care 195 (65-105)
[2020-12-23 21:45] VITALS: BP 133/61; PULSE 64; RESP 16; TEMP 36.1; O2SAT 98
[2020-12-23] MEDS: INSULIN GLARGINE (*BKC) 100 UNITS/ML 20 UNITS SUB-Q (21:49)
[2020-12-23 22:04] LABS: Glucose Point of Care 248 (65-105)
[2020-12-24 06:00] VITALS: BP 148/79; PULSE 72; RESP 16; TEMP 36.1; O2SAT 100
[2020-12-24 06:52] LABS: Glucose Point of Care 88 (65-105)
[2020-12-24 08:00] VITALS: PULSE 72; RESP 16; O2SAT 100
[2020-12-24 09:00] VITALS: BMI 32.6
[2020-12-24] MEDS: ATORVASTATIN 10 MG TABLET PO (09:39)
[2020-12-24] MEDS: LOSARTAN POTASSIUM 25 MG TABLET PO (09:39)
[2020-12-24] MEDS: ASPIRIN 325 MG ENTERIC TABLET PO (09:39)
[2020-12-24] MEDS: POTASSIUM CHLORIDE 20 MEQ TABLET.ER PO (09:39)
[2020-12-24] MEDS: DOXYCYCLINE HYCLATE 100 MG TABLET PO ×2 (09:40→21:25)
[2020-12-24] MEDS: ENOXAPARIN 40 MG/0.4 ML SYRINGE SUB-Q (09:40)
[2020-12-24] MEDS: BUMETANIDE 1 MG TABLET 2 MG PO (09:40)
[2020-12-24 12:03] LABS: Glucose Point of Care 129 (65-105)
--- NOTE | 2020-12-24 12:36 | PCNFU ---
Nutrition Follow-Up Complete: Altered nutrition related labs related to diabetes mellitus as evidenced by HgbA1C of 9.5%. Goal: Patient to consume 75% of meals or greater on diabetic diet. Patient is meeting goal. No new goal at this time. Pt current nutrition is diabetic consistent carbohydrate diet. Last recorded weight is 106.3 kg. Recommend re-weighing patient prior to discharge. Bowel Motility: + BM 12/21 Labs Reviewed: POC capillary glucose 88 Meds Noted: Lipitor, Senna, Novolog, Lantus, Bumex, Cozaar, Kcl tablet Additional Notes: Spoke with patient. Patient reported her appetite has gotten significantly better since being admitted. She is consuming 100% of most meals and requesting snacks in the evening when she feels hungry. She had no nutritional questions or concerns. Follow up in 7 days.
--- NOTE | 2020-12-24 13:11 | PCNSR ---
On 12/24/20, the student, Jamilah Trujillo, provided care and completed [facility] documentation on this patient. I have reviewed the student's documentation and agree with the findings.
--- NOTE | 2020-12-24 13:46 | WPDNEURORHBP ---
Subjective Date/time seen: 12/24/20 13:46 Interval history: Patient underwent a RBKA and has been admitted for TRC. patient has had fluctuating blood sugars with adjustment of medication and insulin. Blood pressure continues to fluctuate. Patient continues to complain of bladder incontinence. Review of Systems Review of Systems: All systems reviewed & are unremarkable except as noted in HPI and below Functional Status Transfers Ability Ability to Transfer In/Out of Chair: Moderate Assistance X 2 Exam Narrative: Exam Narrative: Patient is in no acute distress. Head is normocephalic. Patient is wearing glasses. Speech is fluent. Patient is edentulous. Heart rate and rhythm is regular without murmurs. Lungs sounds are distant but clear. Abdomen is obese nontender positive bowel sounds. Musculoskeletal exam right upper extremity strength is 4+ out of 5 Except for right 4th and 5th digits which reveal some muscle wasting and decreased sensation. Sensory losses noted to the hands and feet in a diabetic neuropathy pattern. Left upper extremity is in a stockinette with improving edema. Fingers swelling is down. Mininal redness is noted. No warmth is present. Left lower extremity strength is essentially 3+ to 4-. Right lower extremity reveals below-knee amputation. Patient is incontinent at times. Bladder scans reviewed. Patient has mild urinary retention but is able to void. Will continue PVR. Patient incontinent at night with PVRs in 200s. Will obtain urology consult Patient requires standby assistance with sliding board. No gait tested. Patient is independent with wheelchair mobility. Patient requires contact guard with dressing upper extremity and moderate assistance with lower extremity. Bathing is at minimal assistance. Toileting is at max assistance for clothing management. Patient will require help at home for the lower extremities. Objective Data Vital Signs Vital Signs: Vital Signs - 24 hr 12/23/20 14:00 12/23/20 21:45 12/24/20 06:00 Temperature 36.6 C 36.1 C L 36.1 C L Pulse Rate 82 64 72 Respiratory Rate 18 16 16 Blood Pressure 148/61 H 133/61 148/79 H Pulse Oximetry 98 98 100 Intake/Output Intake/Output: Intake & Output 12/21/20 12/22/20 12/23/20 12/24/20 23:59 23:59 23:59 23:59 Intake Total 720 840 720 600 Balance 720 840 720 600 Meds/Results Medications: Active Medications Generic Name Dose Route Start Last Admin Trade Name Christq PRN Reason Stop Dose Admin Hydrocodone Bitart/Acetaminophen 1 tab 12/18/20 21:06 Hydrocodone/Acetaminophen (*Crx) 5-325 Mg Tablet PO Q4H PRN Pain Rated 4-6 Aspirin 325 mg 12/19/20 09:00 12/24/20 09:39 Aspirin 325 Mg Enteric Tablet PO 325 mg DAILY JL Administration Atorvastatin Calcium 10 mg 12/19/20 09:00 12/24/20 09:39 Atorvastatin 10 Mg Tablet PO 10 mg DAILY JL Administration Bumetanide 2 mg 12/19/20 09:00 12/24/20 09:40 Bumetanide 1 Mg Tablet PO 2 mg DAILY JL Administration Dextrose 12.5 gm 12/18/20 21:09 Dextrose 50% 25 Gm/50 Ml Syringe IV PUSH PRN PRN Hypoglycemia Protocol Doxycycline Hyclate 100 mg 12/19/20 09:45 12/24/20 09:40 Doxycycline Hyclate 100 Mg Tablet PO 12/28/20 21:01 100 mg Q12HR JL Administration Enoxaparin Sodium 40 mg 12/19/20 09:00 12/24/20 09:40 Enoxaparin 40 Mg/0.4 Ml Syringe SUB-Q 40 mg DAILY JL Administration Glipizide 5 mg 12/25/20 06:30 Glipizide 5 Mg Tablet PO DAILY@0630 JL Glucagon 1 mg 12/18/20 21:09 Glucagon For Inj 1 Mg Vial IM PRN PRN Hypoglycemia Protocol Glucose 15 gm 12/18/20 21:09 Glucose Oral Gel 15 Gm Of Glucse In 37.5 Gm Tube PO PRN PRN Hypoglycemia Protocol Dextrose 1,000 mls @ 100 mls/hr 12/18/20 21:09 Dextrose 5% 1,000 Ml IVPB PRN PRN Hypoglycemia Protocol Insulin Aspart 4 - 8 units 12/19/20 17:00 12/24/20 12:12
[2020-12-24 14:00] VITALS: BP 140/67; PULSE 70; RESP 16; TEMP 36.1; O2SAT 100
--- NOTE | 2020-12-24 14:17 | WPDURCON ---
Assessment and Plan Assessment and plan (1) Urinary incontinence: Code(s): R32 - Unspecified urinary incontinence <Oanh Luong APRN - Last Filed: 12/24/20 14:42> Status: Acute <Oanh Luong APRN - Last Filed: 12/24/20 14:42> Assessment and Plan: Secondary to incomplete emptying, poor diabetic control and immobility. Patient will need follow up in the office once discharged to further evaluate and rule out neurogenic bladder. <Oanh Luong APRN - Last Filed: 12/24/20 14:42> (2) Urgency of micturition: Code(s): R39.15 - Urgency of urination <Oanh Luong APRN - Last Filed: 12/24/20 14:42> Status: Acute <Oanh Luong APRN - Last Filed: 12/24/20 14:42> Assessment and Plan: Continue bladder scans, if >300cc, will need to call office [phone]. Obtain a UA with reflex to culture. Unfortunately, d/t her elevated residuals, it is best at this time to avoid anti-cholinergics as this may worsen her symptoms and cause retention requiring a catheter. <Oanh Luong APRN - Last Filed: 12/24/20 14:42> (3) Frequency of micturition: Code(s): R35.0 - Frequency of micturition <Oanh Luong APRN - Last Filed: 12/24/20 14:42> Status: Acute <Oanh Luong APRN - Last Filed: 12/24/20 14:42> Urology Consult Note HPI Date Seen: 12/24/20 <Oanh Luong APRN - Last Filed: 12/24/20 14:42> 12/24/20 <Michael Kenyon MD - Last Filed: 12/24/20 14:34> Requesting Physician: Brittany Hidalgo DO <Oanh Luong APRN - Last Filed: 12/24/20 14:42> Primary Care Provider: SELWYN,JOLENE Wayne <Oanh Luong APRN - Last Filed: 12/24/20 14:42> Consult Narrative Narrative: Vanessa Mahajan is a 60 year old female who has been admitted to the rehab unit s/p right BKA at [facility] in early December d/t a right foot wound secondary to uncontrolled diabetes. Since surgery she has developed urgency, frequency and incontinence of urination. She c/o not being able to make it to the commode and being soaked in urine. She has to have help to get to the commode d/t her immobile status post leg amputation and is missing the bedpan when it is offered to her. She has had blood glucose readings as high as 236 while in rehab, but denies dysuria, hematuria, flank pain, abdominal pain, hesitancy or straining to urinate. She denies a history of UTI's, kidney stones or previous OAB problems. I spoke with her nurse after our visit and she states that her PVR's have been around 200cc with a bladder scan. She is currently on antibiotics and is doing well recovering from her procedure. <Oanh Loung, [employer] C[employer] INSULATOR - Last Filed: 12/24/20 14:42> Review of Systems Cardiovascular: Cardiovascular: Reports no additional cardiovascular complaints <Oanh Luong APRN - Last Filed: 12/24/20 14:42> Respiratory: Respiratory: Reports no additional respiratory complaints <Oanh Luong APRN - Last Filed: 12/24/20 14:42> Gastrointestinal: Gastrointestinal: Denies abdominal pain, Denies nausea and Denies vomiting <Oanh Luong APRN - Last Filed: 12/24/20 14:42> Genitourinary: Genitourinary: Reports nocturia, Denies dysuria, Denies flank pain, Reports urinary incontinence, Denies urinary hesitancy and Reports urinary urgency <Oanh Luong APRN - Last Filed: 12/24/20 14:42> Musculoskeletal: Musculoskeletal: Reports abnormal gait <Oanh Luong APRN - Last Filed: 12/24/20 14:42> [facility] Past Medical History Medical History: Medical History COPD (chronic obstructive pulmonary disease) CRI (chronic renal insufficiency) Diabetic neuropathy Hypoalbuminemia Hyponatremia Osteomyelitis of ankle and foot PVD (peripheral vascular disease) Septic arthritis of ankle 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
[2020-12-24 16:40] LABS: Add Urine Microscopic? YES; Appearance Urine Cloudy (Clear); Bilirubin Urine Negative (Negative); Blood Urine Negative (Negative); Color Urine Straw (Yellow); Glucose Urine UA Negative (Negative); Ketones Urine Negative (Negative); Leukocyte Esterase Ur Negative LEU/UL (Negative); Mucus Urine Rare /lpf; Nitrate Urine Negative (Negative); Protein Urine 1+ mg/dL (Negative); Squamous Epithelial Cell Urine Rare /hpf (Few); Urobilinogen Urine Negative mg/dL (<2.0); WBC Urine 0-3 /hpf
[2020-12-24 16:53] LABS: Glucose Point of Care 167 (65-105)
--- NOTE | 2020-12-24 17:46 | PC.NURSE ---
UA with reflex sent to the lab.
[2020-12-24 20:45] VITALS: PULSE 56; RESP 16; O2SAT 99
[2020-12-24] MEDS: INSULIN GLARGINE (*BKC) 100 UNITS/ML 10 UNITS SUB-Q (21:26)
[2020-12-24 22:00] VITALS: BP 149/70; PULSE 56; RESP 16; TEMP 36.6; O2SAT 99
[2020-12-24 22:03] LABS: Glucose Point of Care 251 (65-105)
[2020-12-25 06:00] VITALS: BP 143/65; PULSE 59; RESP 16; TEMP 36.9; O2SAT 100
[2020-12-25] MEDS: glipiZIDE 5 MG TABLET PO (06:30)
[2020-12-25 06:58] LABS: Glucose Point of Care 104 (65-105)
[2020-12-25] MEDS: ASPIRIN 325 MG ENTERIC TABLET PO (09:18)
[2020-12-25] MEDS: BUMETANIDE 1 MG TABLET 2 MG PO (09:18)
[2020-12-25] MEDS: POTASSIUM CHLORIDE 20 MEQ TABLET.ER PO (09:18)
[2020-12-25] MEDS: ATORVASTATIN 10 MG TABLET PO (09:18)
[2020-12-25] MEDS: DOXYCYCLINE HYCLATE 100 MG TABLET PO ×2 (09:19→23:19)
[2020-12-25] MEDS: ENOXAPARIN 40 MG/0.4 ML SYRINGE SUB-Q (09:19)
[2020-12-25] MEDS: LOSARTAN POTASSIUM 25 MG TABLET PO (09:19)
--- NOTE | 2020-12-25 09:45 | WPDNEURORHBP ---
Subjective Date/time seen: 12/25/20 09:45 Interval history: Patient underwent a RBKA and has been admitted for TRC. patient has had fluctuating blood sugars with adjustment of medication and insulin. Glypizide has been initiated with possible addition of Victoza 1.8 Blood pressure remains elevated Patient continues to complain of bladder incontinence. Review of Systems Review of Systems: All systems reviewed & are unremarkable except as noted in HPI and below Genitourinary: Genitourinary: Reports nocturia, Reports urinary incontinence and Reports urinary urgency Functional Status Transfers Ability Ability to Transfer In/Out of Chair: Moderate Assistance X 2 Exam Narrative: Exam Narrative: Patient is in no acute distress. Head is normocephalic. Patient is wearing glasses. Speech is fluent. Patient is edentulous. Heart rate and rhythm is regular without murmurs. Lungs sounds are distant but clear. Abdomen is obese nontender positive bowel sounds. Musculoskeletal exam right upper extremity strength is 4+ out of 5 Except for right 4th and 5th digits which reveal some muscle wasting and decreased sensation. Sensory losses noted to the hands and feet in a diabetic neuropathy pattern. Left upper extremity is in a stockinette with improving edema. Fingers swelling is down. Mininal redness is noted. No warmth is present. Left lower extremity strength is essentially 3+ to 4-. Right lower extremity reveals below-knee amputation. Patient is incontinent at times. Bladder scans reviewed. Patient has mild urinary retention but is able to void. Will continue PVR. Patient incontinent at night with PVRs in 200s. Will obtain urology consult Patient requires standby assistance with sliding board. No gait tested. Patient is independent with wheelchair mobility. Patient requires contact guard with dressing upper extremity and moderate assistance with lower extremity. Bathing is at minimal assistance. Toileting is at max assistance for clothing management. Patient will require help at home for the lower extremities. Objective Data Vital Signs Vital Signs: Vital Signs - 24 hr 12/24/20 14:00 12/24/20 20:45 12/24/20 22:00 Temperature 36.1 C L 36.6 C Pulse Rate 70 56 L 56 L Respiratory Rate 16 16 16 Blood Pressure 140/67 149/70 H Pulse Oximetry 100 99 99 12/25/20 06:00 Temperature 36.9 C Pulse Rate 59 L Respiratory Rate 16 Blood Pressure 143/65 H Pulse Oximetry 100 Intake/Output Intake/Output: Intake & Output 12/22/20 12/23/20 12/24/20 12/25/20 23:59 23:59 23:59 23:59 Intake Total 840 720 960 240 Balance 840 720 960 240 Meds/Results Medications: Active Medications Generic Name Dose Route Start Last Admin Trade Name Freq PRN Reason Stop Dose Admin Hydrocodone Bitart/Acetaminophen 1 tab 12/18/20 21:06 Hydrocodone/Acetaminophen (*Crx) 5-325 Mg Tablet PO Q4H PRN Pain Rated 4-6 Aspirin 325 mg 12/19/20 09:00 12/25/20 09:18 Aspirin 325 Mg Enteric Tablet PO 325 mg DAILY JL Administration Atorvastatin Calcium 10 mg 12/19/20 09:00 12/25/20 09:18 Atorvastatin 10 Mg Tablet PO 10 mg DAILY JL Administration Bumetanide 2 mg 12/19/20 09:00 12/25/20 09:18 Bumetanide 1 Mg Tablet PO 2 mg DAILY JL Administration Dextrose 12.5 gm 12/18/20 21:09 Dextrose 50% 25 Gm/50 Ml Syringe IV PUSH PRN PRN Hypoglycemia Protocol Doxycycline Hyclate 100 mg 12/19/20 09:45 12/25/20 09:19 Doxycycline Hyclate 100 Mg Tablet PO 12/28/20 21:01 100 mg Q12HR JL Administration Enoxaparin Sodium 40 mg 12/19/20 09:00 12/25/20 09:19 Enoxaparin 40 Mg/0.4 Ml Syringe SUB-Q 40 mg DAILY JL Administration Glipizide 5 mg 12/25/20 06:30 12/25/20 06:30 Glipizide 5 Mg Tablet PO 5 mg DAILY@0630 JL Administration Glucagon 1 mg 12/18/20 21:09 Glucagon For Inj 1 Mg Vial IM PRN PRN Hypoglycemia Protocol Glucose 15
--- NOTE | 2020-12-25 10:00 | PCOTNOTE ---
Vanessa Mahajan was evaluated for a drop arm bedside commode and tub transfer bench on 12/25/20 by this occupational therapist. The drop arm bedside commode will resolve patient's toileting limitations as he will need an elevated, level transfer surface for toileting and will be unable to ambulate into bathroom for toileting and will require use of a slide board for all transfers due to new RT BKA complicated by LT arm edema, COPD, DM, renal insufficiency, PAD, PVD, and generalized weakness. The patient is unable to safely complete slide board transfer from w/c to toilet due to uneven surface and decreased balance during transfer. The drop arm bedside commode will be used at bedside to allow for independence with transfer to commode as well as decreased caregiver burden with toileting tasks. The tub transfer bench will resolve the patients inability to transfer to tub for shower/bathing purposes. Mrs. Mahajan is unable to step into tub due to new RT BKA complicated by LT arm edema, COPD, DM, renal insufficiency, PAD, PVD, and generalized weakness. The tub transfer bench will allow patient to transfer into tub using a slide board for shower/bathing purposes within her home. I agree with and certify that the above recommendation is medically necessary. Referring Physician Date
--- NOTE | 2020-12-25 10:59 | WPDUROPN2 ---
Progress Note: A&P Assessment and Plan (1) Frequency of micturition: Code(s): R35.0 - Frequency of micturition Status: Acute Assessment and Plan: Will get a urine culture d/t cloudy urine with microhematuria on UA, continue Doxycycline at this time, will tailor antibiotics if necessary. We discussed trying a low dose Oxybutynin ER 5mg QD to aid in her symptoms, and she understands that with an elevated PVR she is at risk for urinary retention, so she will think about it and we will check back to see if she wants to try it. She is also aware it can take 2-3 weeks to become effective. (2) Urgency of micturition: Code(s): R39.15 - Urgency of urination Status: Acute (3) Urinary incontinence: Code(s): R32 - Unspecified urinary incontinence Status: Acute Assessment and Plan: Likely secondary to either overflow incontinence or immobility. (4) Microhematuria: Code(s): R31.29 - Other microscopic hematuria Status: Acute Assessment and Plan: Will plan to get a CT abdomen/pelvis and KUB to rule out any anatomic abnormality such as: stones or tumors d/t her past smoking history and current OAB symptoms. Subjective Subjective Date/Time Seen: 12/25/20 10:59 Patient is having continued incontinence d/t urinary urgency. Her bladder scans post void continue to be in the 200-250cc range. She denies symptoms of a UTI, but her UA did show microhematuria and the appearance was cloudy. Review of Systems Cardiovascular: Cardiovascular: Denies chest pain Respiratory: Respiratory: Reports no additional respiratory complaints Gastrointestinal: Gastrointestinal: Denies abdominal pain, Denies nausea and Denies vomiting Genitourinary: Genitourinary: Denies hematuria, Reports nocturia, Denies dysuria, Denies pelvic pain, Denies flank pain, Reports urinary incontinence and Reports urinary urgency Exam Resp: Effort & Inspection: normal respiratory effort Cardio: Rate: regular rate GI: GI Palp: Yes Soft to palpation and No Tenderness to palpation present (GI) : General: Yes no CVA tenderness Extrem: General: no edema Objective Data Vital Signs Vital Signs: Vital Signs - 24 hr 12/24/20 14:00 12/24/20 20:45 12/24/20 22:00 Temperature 97 F L 97.8 F Pulse Rate 70 56 L 56 L Respiratory Rate 16 16 16 Blood Pressure 140/67 149/70 H Pulse Oximetry 100 99 99 12/25/20 06:00 Temperature 98.4 F Pulse Rate 59 L Respiratory Rate 16 Blood Pressure 143/65 H Pulse Oximetry 100 Intake/Output Intake/Output: Intake & Output 12/22/20 12/23/20 12/24/20 12/25/20 23:59 23:59 23:59 23:59 Intake Total 840 720 960 240 Balance 840 720 960 240 Meds/Results Medications: Active Medications Generic Name Dose Route Start Last Admin Trade Name Freq PRN Reason Stop Dose Admin Hydrocodone Bitart/Acetaminophen 1 tab 12/18/20 21:06 Hydrocodone/Acetaminophen (*Crx) 5-325 Mg Tablet PO Q4H PRN Pain Rated 4-6 Aspirin 325 mg 12/19/20 09:00 12/25/20 09:18 Aspirin 325 Mg Enteric Tablet PO 325 mg DAILY JL Administration Atorvastatin Calcium 10 mg 12/19/20 09:00 12/25/20 09:18 Atorvastatin 10 Mg Tablet PO 10 mg DAILY JL Administration Bumetanide 2 mg 12/19/20 09:00 12/25/20 09:18 Bumetanide 1 Mg Tablet PO 2 mg DAILY JL Administration Dextrose 12.5 gm 12/18/20 21:09 Dextrose 50% 25 Gm/50 Ml Syringe IV PUSH PRN PRN Hypoglycemia Protocol Doxycycline Hyclate 100 mg 12/19/20 09:45 12/25/20 09:19 Doxycycline Hyclate 100 Mg Tablet PO 12/28/20 21:01 100 mg Q12HR JL Administration Enoxaparin Sodium 40 mg 12/19/20 09:00 12/25/20 09:19 Enoxaparin 40 Mg/0.4 Ml Syringe SUB-Q 40 mg DAILY JL Administration Glipizide 5 mg 12/25/20 06:30 12/25/20 06:30 Glipizide 5 Mg Tablet PO 5 mg DAILY@0630 JL Administration Glucagon 1 mg 12/18/20 21:09 Glucagon For Inj 1 Mg Vial IM P
[2020-12-25 11:55] LABS: Glucose Point of Care 87 (65-105)
[2020-12-25 12:15] LABS: Alanine Aminotransferase 16 U/L (4-35); Albumin Level 3.1 g/dL (3.5-5.1); Alkaline Phosphatase 125 U/L (38-126); Anion Gap 1 mmol/L (8-16); Aspartate Amino Transferase 31 U/L (14-36); Bilirubin,Total 0.2 mg/dL (0.2-1.3); Blood Urea Nitrogen 21 mg/dL (7-17); Calcium 8.6 mg/dL (8.4-10.2); Carbon Dioxide 38 mmol/L (22-30); Chloride 100 mmol/L (98-107); Estimated CRCL calculation 88 ml/min; Estimated Glomerular Filt Rate > 60; Glucose 102 mg/dL (65-105); Potassium 3.9 mmol/L (3.4-5.0); Sodium 139 mmol/L (137-145)
[2020-12-25] MEDS: LOSARTAN POTASSIUM 12.5 MG TABLET PO (13:08)
--- NOTE | 2020-12-25 13:41 | PCOTNOTE ---
OT treatment unable to be completed at this time due to patient out for testing.
[2020-12-25 14:00] VITALS: BP 171/80; PULSE 73; RESP 18; TEMP 36.6; O2SAT 98
[2020-12-25 18:13] LABS: Glucose Point of Care 167 (65-105)
[2020-12-25 20:50] VITALS: PULSE 54; RESP 16; O2SAT 100
[2020-12-25] MEDS: INSULIN GLARGINE (*BKC) 100 UNITS/ML 10 UNITS SUB-Q (21:37)
[2020-12-25 21:53] VITALS: BP 133/75; PULSE 54; RESP 16; TEMP 36.7; O2SAT 100
[2020-12-25 22:10] LABS: Glucose Point of Care 225 (65-105)
[2020-12-26 05:51] VITALS: BP 148/63; PULSE 57; RESP 16; TEMP 36.1; O2SAT 99
[2020-12-26 05:58] LABS: Basophils Percent Auto 0.7 % (0.2-1.2); Eosinophils Absolute Auto 0.3 K/mm3 (0-0.3); Eosinophils Percent Auto 5.2 % (0-4.4); Hematocrit 29.7 % (37.0-47.0); Immature Granulocyte Absolute 0.02 K/mm3 (0.00-0.031); Immature Granulocyte Percent A 0.3 % (0-0.5); Lymphocytes Percent Auto 38.3 % (18.3-44.2); Mean Corpuscular HGB Conc 30.3 g/dl (32-36); Mean Corpuscular Hemoglobin 28.6 pg (26-34); Mean Corpuscular Volume 94.3 fl (80-100); Monocytes Absolute Auto 0.7 K/mm3 (0.1-0.6); Monocytes Percent Auto 11.5 % (2.6-8.5); Neutrophils Absolute Auto 2.5 K/mm3 (1.3-6.7); Platelet Count Result 242 k/mm3 (150-375); Red Blood Count 3.15 M/mm3 (4.2-5.4); Red Cell Distribution Width 17.6 % (11.5-14.5); White Blood Count 5.7 K/mm3 (4.5-10.0)
[2020-12-26 06:10] LABS: Anion Gap 1 mmol/L (8-16); Blood Urea Nitrogen 24 mg/dL (7-17); Calcium 8.7 mg/dL (8.4-10.2); Carbon Dioxide 34 mmol/L (22-30); Chloride 103 mmol/L (98-107); Estimated CRCL calculation 115 ml/min; Estimated Glomerular Filt Rate > 60; Glucose 162 mg/dL (65-105); Potassium 3.9 mmol/L (3.4-5.0); Sodium 138 mmol/L (137-145)
[2020-12-26] MEDS: glipiZIDE 5 MG TABLET PO (06:45)
--- NOTE | 2020-12-26 08:49 | WPDUROPN2 ---
Progress Note: A&P Assessment and Plan (1) Microhematuria: Code(s): R31.29 - Other microscopic hematuria Status: Acute Assessment and Plan: CT negative. Will need to follow up in our office for a cystoscopy with Dr. Alexander. (2) Frequency of micturition: Code(s): R35.0 - Frequency of micturition Status: Acute Assessment and Plan: Start Myrbetriq, we discussed signs and symptoms of urinary retention, she is aware of her elevated PVR and that she could develop worsening retention and need a mckeon. If she develops retention and would need a mckeon we would stop Myrbetriq and do a voiding trial 1-2 weeks later. She will take Myrbetriq nightly indefinitely until we re-evaluate her symptoms in the office. No further evaluation needed. (3) Urgency of micturition: Code(s): R39.15 - Urgency of urination Status: Acute (4) Urinary incontinence: Code(s): R32 - Unspecified urinary incontinence Status: Acute Subjective Subjective Date/Time Seen: 12/26/20 08:49 Patient is having continued incontinence d/t urinary urgency. Her bladder scans post void continue to be in the 200-250cc range. She denies symptoms of a UTI, but her UA did show microhematuria, although her CT Urogram was negative for Urologic findings. Review of Systems Cardiovascular: Cardiovascular: Denies chest pain Respiratory: Respiratory: Reports no additional respiratory complaints Gastrointestinal: Gastrointestinal: Denies abdominal pain, Denies nausea and Denies vomiting Genitourinary: Genitourinary: Denies hematuria, Reports nocturia, Denies pelvic pain, Denies flank pain, Reports urinary incontinence and Reports urinary urgency Exam Resp: Effort & Inspection: normal respiratory effort Cardio: Rate: regular rate GI: GI Palp: Yes Soft to palpation and No Tenderness to palpation present (GI) : General: Yes no CVA tenderness Extrem: General: edema left Objective Data Vital Signs Vital Signs: Vital Signs - 24 hr 12/25/20 14:00 12/25/20 20:50 12/25/20 21:53 Temperature 97.9 F 98.1 F Pulse Rate 73 54 L 54 L Respiratory Rate 18 16 16 Blood Pressure 171/80 H 133/75 Pulse Oximetry 98 100 100 12/26/20 05:51 Temperature 97.0 F L Pulse Rate 57 L Respiratory Rate 16 Blood Pressure 148/63 H Pulse Oximetry 99 Intake/Output Intake/Output: Intake & Output 12/23/20 12/24/20 12/25/20 12/26/20 23:59 23:59 23:59 23:59 Intake Total 720 960 720 Balance 720 960 720 Meds/Results Medications: Active Medications Generic Name Dose Route Start Last Admin Trade Name Freq PRN Reason Stop Dose Admin Hydrocodone Bitart/Acetaminophen 1 tab 12/18/20 21:06 Hydrocodone/Acetaminophen (*Crx) 5-325 Mg Tablet PO Q4H PRN Pain Rated 4-6 Aspirin 325 mg 12/19/20 09:00 12/25/20 09:18 Aspirin 325 Mg Enteric Tablet PO 325 mg DAILY JL Administration Atorvastatin Calcium 10 mg 12/19/20 09:00 12/25/20 09:18 Atorvastatin 10 Mg Tablet PO 10 mg DAILY JL Administration Bumetanide 2 mg 12/19/20 09:00 12/25/20 09:18 Bumetanide 1 Mg Tablet PO 2 mg DAILY JL Administration Dextrose 12.5 gm 12/18/20 21:09 Dextrose 50% 25 Gm/50 Ml Syringe IV PUSH PRN PRN Hypoglycemia Protocol Doxycycline Hyclate 100 mg 12/19/20 09:45 12/25/20 23:19 Doxycycline Hyclate 100 Mg Tablet PO 12/28/20 21:01 100 mg Q12HR JL Administration Enoxaparin Sodium 40 mg 12/19/20 09:00 12/25/20 09:19 Enoxaparin 40 Mg/0.4 Ml Syringe SUB-Q 40 mg DAILY JL Administration Glipizide 5 mg 12/25/20 06:30 12/26/20 06:45 Glipizide 5 Mg Tablet PO 5 mg DAILY@0630 JL Administration Glucagon 1 mg 12/18/20 21:09 Glucagon For Inj 1 Mg Vial IM PRN PRN Hypoglycemia Protocol Glucose 15 gm 12/18/20 21:09 Glucose Oral Gel 15 Gm Of Glucse In 37.5 Gm Tube PO PRN PRN Hypoglycemia Protocol Dextrose 1,000 m
[2020-12-26] MEDS: ASPIRIN 325 MG ENTERIC TABLET PO (08:58)
[2020-12-26] MEDS: ENOXAPARIN 40 MG/0.4 ML SYRINGE SUB-Q (08:58)
[2020-12-26] MEDS: MIRABEGRON 25 MG ER TABLET PO (08:58)
[2020-12-26] MEDS: LOSARTAN POTASSIUM 12.5 MG TABLET PO (08:59)
[2020-12-26] MEDS: POTASSIUM CHLORIDE 20 MEQ TABLET.ER PO (08:59)
[2020-12-26] MEDS: LOSARTAN POTASSIUM 25 MG TABLET PO (08:59)
[2020-12-26] MEDS: DOXYCYCLINE HYCLATE 100 MG TABLET PO ×2 (08:59→20:14)
[2020-12-26] MEDS: ATORVASTATIN 10 MG TABLET PO (08:59)
[2020-12-26] MEDS: BUMETANIDE 1 MG TABLET 2 MG PO (08:59)
[2020-12-26 12:10] LABS: Glucose Point of Care 124 (65-105)
[2020-12-26 14:00] VITALS: BP 115/56; PULSE 90; RESP 18; TEMP 36.4; O2SAT 99
--- NOTE | 2020-12-26 15:34 | WPDNEURORHBP ---
Subjective Date/time seen: 12/26/20 15:34 Interval history: Patient underwent a RBKA and has been admitted for TRC. patient has had fluctuating blood sugars with adjustment of medication and insulin. Glypizide has been initiated with possible addition of Victoza 1.8 Blood pressure remains elevated Patient continues to complain of bladder incontinence. Review of Systems Review of Systems: All systems reviewed & are unremarkable except as noted in HPI and below Genitourinary: Genitourinary: Reports nocturia, Reports urinary incontinence and Reports urinary urgency Functional Status Transfers Ability Ability to Transfer In/Out of Chair: Moderate Assistance X 2 Exam Narrative: Exam Narrative: Patient is in no acute distress. Head is normocephalic. Patient is wearing glasses. Speech is fluent. Patient is edentulous. Heart rate and rhythm is regular without murmurs. Lungs sounds are distant but clear. Abdomen is obese nontender positive bowel sounds. Musculoskeletal exam right upper extremity strength is 4+ out of 5 Except for right 4th and 5th digits which reveal some muscle wasting and decreased sensation. Sensory losses noted to the hands and feet in a diabetic neuropathy pattern. Left upper extremity is in a stockinette with improving edema. Fingers swelling is down. Mininal redness is noted. No warmth is present. Left lower extremity strength is essentially 3+ to 4-. Right lower extremity reveals below-knee amputation. Patient is incontinent at times. Bladder scans reviewed. Patient has mild urinary retention but is able to void. Will continue PVR. Patient incontinent at night with PVRs in 200s. Will obtain urology consult Patient requires standby assistance with sliding board. No gait tested. Patient is independent with wheelchair mobility. Patient requires contact guard with dressing upper extremity and moderate assistance with lower extremity. Bathing is at minimal assistance. Toileting is at max assistance for clothing management. Patient will require help at home for the lower extremities. Objective Data Vital Signs Vital Signs: Vital Signs - 24 hr 12/25/20 20:50 12/25/20 21:53 12/26/20 05:51 Temperature 36.7 C 36.1 C L Pulse Rate 54 L 54 L 57 L Respiratory Rate 16 16 16 Blood Pressure 133/75 148/63 H Pulse Oximetry 100 100 99 12/26/20 14:00 Temperature 36.4 C L Pulse Rate 90 Respiratory Rate 18 Blood Pressure 115/56 L Pulse Oximetry 99 Intake/Output Intake/Output: Intake & Output 12/23/20 12/24/20 12/25/20 12/26/20 23:59 23:59 23:59 23:59 Intake Total 720 960 720 480 Balance 720 960 720 480 Meds/Results Medications: Active Medications Generic Name Dose Route Start Last Admin Trade Name Freq PRN Reason Stop Dose Admin Hydrocodone Bitart/Acetaminophen 1 tab 12/18/20 21:06 Hydrocodone/Acetaminophen (*Crx) 5-325 Mg Tablet PO Q4H PRN Pain Rated 4-6 Aspirin 325 mg 12/19/20 09:00 12/26/20 08:58 Aspirin 325 Mg Enteric Tablet PO 325 mg DAILY JL Administration Atorvastatin Calcium 10 mg 12/19/20 09:00 12/26/20 08:59 Atorvastatin 10 Mg Tablet PO 10 mg DAILY JL Administration Bumetanide 2 mg 12/19/20 09:00 12/26/20 08:59 Bumetanide 1 Mg Tablet PO 2 mg DAILY JL Administration Dextrose 12.5 gm 12/18/20 21:09 Dextrose 50% 25 Gm/50 Ml Syringe IV PUSH PRN PRN Hypoglycemia Protocol Doxycycline Hyclate 100 mg 12/19/20 09:45 12/26/20 08:59 Doxycycline Hyclate 100 Mg Tablet PO 12/28/20 21:01 100 mg Q12HR JL Administration Enoxaparin Sodium 40 mg 12/19/20 09:00 12/26/20 08:58 Enoxaparin 40 Mg/0.4 Ml Syringe SUB-Q 40 mg DAILY JL Administration Glipizide 5 mg 12/25/20 06:30 12/26/20 06:45 Glipizide 5 Mg Tablet PO 5 mg DAILY@0630 JL Administration Glucagon 1 mg 12/18/20 21:09 Glucagon For Inj 1 Mg Vial IM PRN PRN Hypoglycemia Protocol Glucose 1
[2020-12-26 17:02] LABS: Glucose Point of Care 261 (65-105)
[2020-12-26] MEDS: INSULIN ASPART (*BKC) 100 UNITS/ML SUB-Q (17:29)
[2020-12-26 20:00] VITALS: PULSE 90; RESP 18; O2SAT 99
[2020-12-26] MEDS: INSULIN GLARGINE (*BKC) 100 UNITS/ML 10 UNITS SUB-Q (20:13)
[2020-12-26 20:25] LABS: Glucose Point of Care 166 (65-105)
[2020-12-26 21:06] VITALS: BP 121/52; PULSE 58; RESP 18; TEMP 36.6; O2SAT 99
[2020-12-27 05:32] VITALS: BP 115/61; PULSE 55; RESP 16; TEMP 36.8; O2SAT 97
[2020-12-27] MEDS: glipiZIDE 5 MG TABLET PO (06:28)
[2020-12-27 06:31] LABS: Glucose Point of Care 139 (65-105)
[2020-12-27] MEDS: DOXYCYCLINE HYCLATE 100 MG TABLET PO ×2 (09:10→21:29)
[2020-12-27] MEDS: LOSARTAN POTASSIUM 12.5 MG TABLET PO (09:11)
[2020-12-27] MEDS: POTASSIUM CHLORIDE 20 MEQ TABLET.ER PO (09:11)
[2020-12-27] MEDS: ASPIRIN 325 MG ENTERIC TABLET PO (09:11)
[2020-12-27] MEDS: LOSARTAN POTASSIUM 25 MG TABLET PO (09:11)
[2020-12-27] MEDS: MIRABEGRON 25 MG ER TABLET PO (09:11)
[2020-12-27] MEDS: BUMETANIDE 1 MG TABLET 2 MG PO (09:11)
[2020-12-27] MEDS: ATORVASTATIN 10 MG TABLET PO (09:11)
[2020-12-27] MEDS: ENOXAPARIN 40 MG/0.4 ML SYRINGE SUB-Q (09:11)
[2020-12-27 11:06] LABS: Glucose Point of Care 145 (65-105)
--- NOTE | 2020-12-27 13:39 | WPDNEURORHBP ---
Subjective Date/time seen: 12/27/20 13:39 Interval history: Patient underwent a RBKA and has been admitted for TRC. patient has had fluctuating blood sugars with adjustment of medication and insulin. Glypizide has been initiated with possible addition of Victoza 1.8 Blood pressure remains elevated but better Patient continues to complain of bladder incontinence. Patient with better control with Myrbetriq Review of Systems Review of Systems: All systems reviewed & are unremarkable except as noted in HPI and below Functional Status Transfers Ability Ability to Transfer In/Out of Chair: Moderate Assistance X 2 Exam Narrative: Exam Narrative: Patient is in no acute distress. Head is normocephalic. Patient is wearing glasses. Speech is fluent. Patient is edentulous. Heart rate and rhythm is regular without murmurs. Lungs sounds are distant but clear. Abdomen is obese nontender positive bowel sounds. Musculoskeletal exam right upper extremity strength is 4+ out of 5 Except for right 4th and 5th digits which reveal some muscle wasting and decreased sensation. Sensory losses noted to the hands and feet in a diabetic neuropathy pattern. Left upper extremity is in a stockinette with improving edema. Fingers swelling is down. Mininal redness is noted. No warmth is present. Left lower extremity strength is essentially 3+ to 4-. Right lower extremity reveals below-knee amputation. Patient is incontinent at times. Urology has placed patient on Myrbetriq. Patient less incontinent last night. Objective Data Vital Signs Vital Signs: Vital Signs - 24 hr 12/26/20 14:00 12/26/20 20:00 12/26/20 21:06 Temperature 36.4 C L 36.6 C Pulse Rate 90 90 58 L Respiratory Rate 18 18 18 Blood Pressure 115/56 L 121/52 L Pulse Oximetry 99 99 99 12/27/20 05:32 Temperature 36.8 C Pulse Rate 55 L Respiratory Rate 16 Blood Pressure 115/61 Pulse Oximetry 97 Intake/Output Intake/Output: Intake & Output 12/24/20 12/25/20 12/26/20 12/27/20 23:59 23:59 23:59 23:59 Intake Total 960 720 720 780 Balance 960 720 720 780 Meds/Results Medications: Active Medications Generic Name Dose Route Start Last Admin Trade Name Freq PRN Reason Stop Dose Admin Hydrocodone Bitart/Acetaminophen 1 tab 12/18/20 21:06 Hydrocodone/Acetaminophen (*Crx) 5-325 Mg Tablet PO Q4H PRN Pain Rated 4-6 Aspirin 325 mg 12/19/20 09:00 12/27/20 09:11 Aspirin 325 Mg Enteric Tablet PO 325 mg DAILY JL Administration Atorvastatin Calcium 10 mg 12/19/20 09:00 12/27/20 09:11 Atorvastatin 10 Mg Tablet PO 10 mg DAILY JL Administration Bumetanide 2 mg 12/19/20 09:00 12/27/20 09:11 Bumetanide 1 Mg Tablet PO 2 mg DAILY JL Administration Dextrose 12.5 gm 12/18/20 21:09 Dextrose 50% 25 Gm/50 Ml Syringe IV PUSH PRN PRN Hypoglycemia Protocol Doxycycline Hyclate 100 mg 12/19/20 09:45 12/27/20 09:10 Doxycycline Hyclate 100 Mg Tablet PO 12/28/20 21:01 100 mg Q12HR JL Administration Enoxaparin Sodium 40 mg 12/19/20 09:00 12/27/20 09:11 Enoxaparin 40 Mg/0.4 Ml Syringe SUB-Q 40 mg DAILY JL Administration Glipizide 5 mg 12/25/20 06:30 12/27/20 06:28 Glipizide 5 Mg Tablet PO 5 mg DAILY@0630 JL Administration Glucagon 1 mg 12/18/20 21:09 Glucagon For Inj 1 Mg Vial IM PRN PRN Hypoglycemia Protocol Glucose 15 gm 12/18/20 21:09 Glucose Oral Gel 15 Gm Of Glucse In 37.5 Gm Tube PO PRN PRN Hypoglycemia Protocol Dextrose 1,000 mls @ 100 mls/hr 12/18/20 21:09 Dextrose 5% 1,000 Ml IVPB PRN PRN Hypoglycemia Protocol Insulin Aspart 4 - 8 units 12/19/20 17:00 12/27/20 11:08 Insulin Aspart (*Bkc) 100 Units/Ml SUB-Q Not Given TIDWM JL Protocol Insulin Glargine 10 units 12/24/20 21:00 12/26/20 20:13 Insulin Glargine (*Bkc) 100 Units/Ml SUB-Q 10 units HS JL Administration
[2020-12-27 14:00] VITALS: BP 120/57; PULSE 63; RESP 14; TEMP 36; O2SAT 100
--- NOTE | 2020-12-27 14:30 | PCCDE ---
Diabetes education f/up: poc bg range=87-261mg/dl since Glipizide resumed. home med of Victoza will be resumed tomorrow. Presume/recommend to d/c Lantus before discharge and have pt f/up with PCP. Reviewed causes, sx and tx of hypo and hyperglycemia with pt. Strongly encouraged regular eating habits of 3 meals/day spaced no more than 4-5 hours apart to stabilize BG. Pt has [facility] contact info and encouraged to call prn.
--- NOTE | 2020-12-27 15:22 | PHAR ---
HOME MED VERIFIED = [facility] [id number] VICTOZA PEN 10 MG/3 ML, 3 PENS IN UNOPENED BOX. LABEL DIRECTIONS ARE INJECT 1.8 SUBCUTANEOUSLY ONCE DAILY .
[2020-12-27 16:43] LABS: Glucose Point of Care 200 (65-105)
[2020-12-27 20:00] VITALS: PULSE 58; RESP 16; O2SAT 100
[2020-12-27 22:00] VITALS: BP 141/65; PULSE 58; RESP 16; TEMP 36.3; O2SAT 100
[2020-12-27 22:07] LABS: Glucose Point of Care 260 (65-105)
[2020-12-28 00:06] LABS: Glucose Point of Care 209 (65-105)
[2020-12-28 05:25] VITALS: BP 154/55; PULSE 65; RESP 14; TEMP 36.2; O2SAT 100
[2020-12-28 06:37] LABS: Glucose Point of Care 108 (65-105)
[2020-12-28] MEDS: BUMETANIDE 1 MG TABLET 2 MG PO (07:49)
[2020-12-28] MEDS: ATORVASTATIN 10 MG TABLET PO (07:49)
[2020-12-28] MEDS: glipiZIDE 5 MG TABLET PO (07:49)
[2020-12-28] MEDS: DOXYCYCLINE HYCLATE 100 MG TABLET PO ×2 (07:50→22:05)
[2020-12-28] MEDS: ENOXAPARIN 40 MG/0.4 ML SYRINGE SUB-Q (07:50)
[2020-12-28] MEDS: MIRABEGRON 25 MG ER TABLET PO (07:50)
[2020-12-28] MEDS: POTASSIUM CHLORIDE 20 MEQ TABLET.ER PO (07:50)
[2020-12-28] MEDS: LOSARTAN POTASSIUM 12.5 MG TABLET PO (07:50)
[2020-12-28] MEDS: ASPIRIN 325 MG ENTERIC TABLET PO (07:50)
[2020-12-28] MEDS: LOSARTAN POTASSIUM 25 MG TABLET PO (07:50)
--- NOTE | 2020-12-28 10:49 | WPDNEURORHBP ---
Subjective Date/time seen: 12/28/20 10:49 Interval history: Patient underwent a RBKA and has been admitted for TRC. patient has had fluctuating blood sugars with adjustment of medication and insulin. Glypizide has been initiated with possible addition of Victoza 1.8 Blood pressure remains elevated but better Patient with better control with Myrbetriq Review of Systems Review of Systems: All systems reviewed & are unremarkable except as noted in HPI and below Functional Status Transfers Ability Ability to Transfer In/Out of Chair: Moderate Assistance X 2 Exam Narrative: Exam Narrative: Patient is in no acute distress. Head is normocephalic. Patient is wearing glasses. Speech is fluent. Patient is edentulous. Heart rate and rhythm is regular without murmurs. Lungs sounds are distant but clear. Abdomen is obese nontender positive bowel sounds. Musculoskeletal exam right upper extremity strength is 4+ out of 5 Except for right 4th and 5th digits which reveal some muscle wasting and decreased sensation. Sensory losses noted to the hands and feet in a diabetic neuropathy pattern. Left upper extremity is in a stockinette with improving edema. Fingers swelling is down. Mininal redness is noted. No warmth is present. Left lower extremity strength is essentially 3+ to 4-. Right lower extremity reveals below-knee amputation. Patient is incontinent at times. Urology has placed patient on Myrbetriq. Patient less incontinent last night. Objective Data Vital Signs Vital Signs: Vital Signs - 24 hr 12/27/20 14:00 12/27/20 20:00 12/27/20 22:00 Temperature 36.0 C L 36.3 C L Pulse Rate 63 58 L 58 L Respiratory Rate 14 16 16 Blood Pressure 120/57 L 141/65 H Pulse Oximetry 100 100 100 12/28/20 05:25 Temperature 36.2 C L Pulse Rate 65 Respiratory Rate 14 Blood Pressure 154/55 H Pulse Oximetry 100 Intake/Output Intake/Output: Intake & Output 12/25/20 12/26/20 12/27/20 12/28/20 23:59 23:59 23:59 23:59 Intake Total 720 720 780 240 Balance 720 720 780 240 Meds/Results Medications: Active Medications Generic Name Dose Route Start Last Admin Trade Name Freq PRN Reason Stop Dose Admin Hydrocodone Bitart/Acetaminophen 1 tab 12/18/20 21:06 Hydrocodone/Acetaminophen (*Crx) 5-325 Mg Tablet PO Q4H PRN Pain Rated 4-6 Aspirin 325 mg 12/19/20 09:00 12/28/20 07:50 Aspirin 325 Mg Enteric Tablet PO 325 mg DAILY JL Administration Atorvastatin Calcium 10 mg 12/19/20 09:00 12/28/20 07:49 Atorvastatin 10 Mg Tablet PO 10 mg DAILY JL Administration Bumetanide 2 mg 12/19/20 09:00 12/28/20 07:49 Bumetanide 1 Mg Tablet PO 2 mg DAILY JL Administration Dextrose 12.5 gm 12/18/20 21:09 Dextrose 50% 25 Gm/50 Ml Syringe IV PUSH PRN PRN Hypoglycemia Protocol Doxycycline Hyclate 100 mg 12/19/20 09:45 12/28/20 07:50 Doxycycline Hyclate 100 Mg Tablet PO 12/28/20 21:01 100 mg Q12HR JL Administration Enoxaparin Sodium 40 mg 12/19/20 09:00 12/28/20 07:50 Enoxaparin 40 Mg/0.4 Ml Syringe SUB-Q 40 mg DAILY JL Administration Glipizide 5 mg 12/25/20 06:30 12/28/20 07:49 Glipizide 5 Mg Tablet PO 5 mg DAILY@0630 JL Administration Glucagon 1 mg 12/18/20 21:09 Glucagon For Inj 1 Mg Vial IM PRN PRN Hypoglycemia Protocol Glucose 15 gm 12/18/20 21:09 Glucose Oral Gel 15 Gm Of Glucse In 37.5 Gm Tube PO PRN PRN Hypoglycemia Protocol Dextrose 1,000 mls @ 100 mls/hr 12/18/20 21:09 Dextrose 5% 1,000 Ml IVPB PRN PRN Hypoglycemia Protocol Insulin Aspart 4 - 8 units 12/19/20 17:00 12/28/20 07:30 Insulin Aspart (*Bkc) 100 Units/Ml SUB-Q Not Given TIDWM JL Protocol Losartan Potassium 12.5 mg 12/25/20 09:00 12/28/20 07:50 Losartan Potassium 12.5 Mg Tablet PO 12.5 mg DAILY JL Administration Losartan Potassium 25 mg 12/26/20 09:00
[2020-12-28 11:36] LABS: Glucose Point of Care 142 (65-105)
[2020-12-28 14:00] VITALS: BP 148/58; PULSE 72; RESP 20; TEMP 36.3; O2SAT 97
[2020-12-28 16:51] LABS: Glucose Point of Care 127 (65-105)
[2020-12-28 20:00] VITALS: PULSE 60; RESP 16; O2SAT 100
[2020-12-28 21:09] LABS: Glucose Point of Care 147 (65-105)
[2020-12-28 21:37] VITALS: BP 151/70; PULSE 60; RESP 16; TEMP 36.4; O2SAT 100
[2020-12-29 06:00] VITALS: BP 141/67; PULSE 67; RESP 18; TEMP 36.4; O2SAT 100
[2020-12-29] MEDS: glipiZIDE 5 MG TABLET PO (06:49)
[2020-12-29 08:13] LABS: Glucose Point of Care 121 (65-105)
[2020-12-29] MEDS: LOSARTAN POTASSIUM 25 MG TABLET PO (09:23)
[2020-12-29] MEDS: LOSARTAN POTASSIUM 12.5 MG TABLET PO (09:23)
[2020-12-29] MEDS: BUMETANIDE 1 MG TABLET 2 MG PO (09:23)
[2020-12-29] MEDS: ATORVASTATIN 10 MG TABLET PO (09:23)
[2020-12-29] MEDS: POTASSIUM CHLORIDE 20 MEQ TABLET.ER PO (09:23)
[2020-12-29] MEDS: ENOXAPARIN 40 MG/0.4 ML SYRINGE SUB-Q (09:23)
[2020-12-29] MEDS: ASPIRIN 325 MG ENTERIC TABLET PO (09:23)
[2020-12-29] MEDS: MIRABEGRON 25 MG ER TABLET PO (09:23)
--- NOTE | 2020-12-29 10:16 | WPDNEURORHBP ---
Subjective Date/time seen: 12/29/20 10:16 Interval history: Patient underwent a RBKA and has been admitted for TRC. patient has had fluctuating blood sugars with adjustment of medication and insulin. Glypizide has been initiated with possible addition of Victoza 1.8 Blood pressure remains elevated will increase to 50 mg to Cozaar Patient with better control with Myrbetriq Review of Systems Review of Systems: All systems reviewed & are unremarkable except as noted in HPI and below Functional Status Transfers Ability Ability to Transfer In/Out of Chair: Moderate Assistance X 2 Exam Narrative: Exam Narrative: Patient is in no acute distress. Head is normocephalic. Patient is wearing glasses. Speech is fluent. Patient is edentulous. Heart rate and rhythm is regular without murmurs. Lungs sounds are distant but clear. Abdomen is obese nontender positive bowel sounds. Musculoskeletal exam right upper extremity strength is 4+ out of 5 Except for right 4th and 5th digits which reveal some muscle wasting and decreased sensation. Sensory losses noted to the hands and feet in a diabetic neuropathy pattern. amputation. Left UE swelling and redness resolved. Patient's overall endurance is better. Sitting balance is better Objective Data Vital Signs Vital Signs: Vital Signs - 24 hr 12/28/20 14:00 12/28/20 20:00 12/28/20 21:37 Temperature 36.3 C L 36.4 C Pulse Rate 72 60 60 Respiratory Rate 20 16 16 Blood Pressure 148/58 H 151/70 H Pulse Oximetry 97 100 100 12/29/20 06:00 Temperature 36.4 C L Pulse Rate 67 Respiratory Rate 18 Blood Pressure 141/67 H Pulse Oximetry 100 Intake/Output Intake/Output: Intake & Output 12/26/20 12/27/20 12/28/20 12/29/20 23:59 23:59 23:59 23:59 Intake Total 720 780 720 240 Balance 720 780 720 240 Meds/Results Medications: Active Medications Generic Name Dose Route Start Last Admin Trade Name Freq PRN Reason Stop Dose Admin Hydrocodone Bitart/Acetaminophen 1 tab 12/18/20 21:06 Hydrocodone/Acetaminophen (*Crx) 5-325 Mg Tablet PO Q4H PRN Pain Rated 4-6 Aspirin 325 mg 12/19/20 09:00 12/29/20 09:23 Aspirin 325 Mg Enteric Tablet PO 325 mg DAILY JL Administration Atorvastatin Calcium 10 mg 12/19/20 09:00 12/29/20 09:23 Atorvastatin 10 Mg Tablet PO 10 mg DAILY JL Administration Bumetanide 2 mg 12/19/20 09:00 12/29/20 09:23 Bumetanide 1 Mg Tablet PO 2 mg DAILY JL Administration Dextrose 12.5 gm 12/18/20 21:09 Dextrose 50% 25 Gm/50 Ml Syringe IV PUSH PRN PRN Hypoglycemia Protocol Enoxaparin Sodium 40 mg 12/19/20 09:00 12/29/20 09:23 Enoxaparin 40 Mg/0.4 Ml Syringe SUB-Q 40 mg DAILY JL Administration Glipizide 5 mg 12/25/20 06:30 12/29/20 06:49 Glipizide 5 Mg Tablet PO 5 mg DAILY@0630 JL Administration Glucagon 1 mg 12/18/20 21:09 Glucagon For Inj 1 Mg Vial IM PRN PRN Hypoglycemia Protocol Glucose 15 gm 12/18/20 21:09 Glucose Oral Gel 15 Gm Of Glucse In 37.5 Gm Tube PO PRN PRN Hypoglycemia Protocol Dextrose 1,000 mls @ 100 mls/hr 12/18/20 21:09 Dextrose 5% 1,000 Ml IVPB PRN PRN Hypoglycemia Protocol Insulin Aspart 4 - 8 units 12/19/20 17:00 12/29/20 08:44 Insulin Aspart (*Bkc) 100 Units/Ml SUB-Q Not Given TIDWM JL Protocol Losartan Potassium 12.5 mg 12/25/20 09:00 12/29/20 09:23 Losartan Potassium 12.5 Mg Tablet PO 12.5 mg DAILY JL Administration Losartan Potassium 25 mg 12/26/20 09:00 12/29/20 09:23 Losartan Potassium 25 Mg Tablet PO 25 mg DAILY JL Administration Mirabegron 25 mg 12/26/20 09:00 12/29/20 09:23 Mirabegron 25 Mg Er Tablet PO 25 mg DAILY JL Administration Potassium Chloride 20 meq 12/19/20 08:00 12/29/20 09:23 Potassium Chloride 20 Meq Tablet.Er PO 20 meq DAILY@0800 JL Administration Senna/Docusate Sodium 1 ta
[2020-12-29 11:18] LABS: Potassium 3.6 mmol/L (3.4-5.0)
[2020-12-29 11:28] LABS: Glucose Point of Care 152 (65-105)
[2020-12-29 14:00] VITALS: BP 128/69; PULSE 71; RESP 20; TEMP 35.9; O2SAT 100
[2020-12-29 16:45] LABS: Glucose Point of Care 192 (65-105)
[2020-12-29 20:01] VITALS: BP 134/63; PULSE 73; RESP 18; TEMP 36.6; O2SAT 100
[2020-12-29 20:45] VITALS: PULSE 73; RESP 18; O2SAT 100
[2020-12-29 22:38] LABS: Glucose Point of Care 268 (65-105)
[2020-12-30 05:16] VITALS: BP 134/72; PULSE 71; RESP 20; TEMP 36.5; O2SAT 100
[2020-12-30 06:34] LABS: Glucose Point of Care 124 (65-105)
[2020-12-30] MEDS: glipiZIDE 5 MG TABLET PO (06:44)
[2020-12-30] MEDS: POTASSIUM CHLORIDE 20 MEQ TABLET.ER PO (09:23)
[2020-12-30] MEDS: ATORVASTATIN 10 MG TABLET PO (09:24)
[2020-12-30] MEDS: ENOXAPARIN 40 MG/0.4 ML SYRINGE SUB-Q (09:24)
[2020-12-30] MEDS: BUMETANIDE 1 MG TABLET 2 MG PO (09:24)
[2020-12-30] MEDS: ASPIRIN 325 MG ENTERIC TABLET PO (09:24)
[2020-12-30] MEDS: LOSARTAN POTASSIUM 50 MG TABLET PO (09:25)
[2020-12-30] MEDS: MIRABEGRON 25 MG ER TABLET PO (09:51)
[2020-12-30 11:56] LABS: Glucose Point of Care 136 (65-105)
[2020-12-30 14:00] VITALS: BP 150/74; PULSE 73; RESP 18; TEMP 36.9; O2SAT 18
--- NOTE | 2020-12-30 16:19 | WPDNEURORHBP ---
Subjective Date/time seen: 12/30/20 16:19 Interval history: Patient underwent a RBKA and has been admitted for TRC. patient has had fluctuating blood sugars with adjustment of medication and insulin. Glypizide has been initiated with possible addition of Victoza 1.8. BS under better control. Blood pressure remains elevated will increase to 50 mg to Cozaar Patient with better control with Myrbetriq but remians incontinent at times. Review of Systems Review of Systems: All systems reviewed & are unremarkable except as noted in HPI and below Genitourinary: Genitourinary: Reports nocturia, Reports urinary incontinence and Reports urinary urgency Functional Status Ambulation Ability Ambulation Assistive Devices: Parallel Bars Transfers Ability Ability to Transfer In/Out of Chair: Moderate Assistance X 2 Exam Narrative: Exam Narrative: Patient is in no acute distress. Head is normocephalic. Patient is wearing glasses. Speech is fluent. Patient is edentulous. Heart rate and rhythm is regular without murmurs. Lungs sounds are distant but clear. Abdomen is obese nontender positive bowel sounds. Musculoskeletal exam right upper extremity strength is 4+ out of 5 Except for right 4th and 5th digits which reveal some muscle wasting and decreased sensation. Sensory losses noted to the hands and feet in a diabetic neuropathy pattern. amputation. Left UE swelling and redness resolved. Patient's overall endurance is better. Sitting balance is better Incision is reported without drainage or redness Bed mobility is independent. patient continues to require setup for slide board transfers. Patient is independent propelling her wheelchair over 190 ft. Objective Data Vital Signs Vital Signs: Vital Signs - 24 hr 12/29/20 20:01 12/29/20 20:45 12/30/20 05:16 Temperature 36.6 C 36.5 C Pulse Rate 73 73 71 Respiratory Rate 18 18 20 Blood Pressure 134/63 134/72 Pulse Oximetry 100 100 100 12/30/20 14:00 Temperature 36.9 C Pulse Rate 73 Respiratory Rate 18 Blood Pressure 150/74 H Pulse Oximetry 18 L Intake/Output Intake/Output: Intake & Output 12/27/20 12/28/20 12/29/20 12/30/20 23:59 23:59 23:59 23:59 Intake Total 780 720 720 480 Balance 780 720 720 480 Meds/Results Medications: Active Medications Generic Name Dose Route Start Last Admin Trade Name Freq PRN Reason Stop Dose Admin Hydrocodone Bitart/Acetaminophen 1 tab 12/18/20 21:06 Hydrocodone/Acetaminophen (*Crx) 5-325 Mg Tablet PO Q4H PRN Pain Rated 4-6 Aspirin 325 mg 12/19/20 09:00 12/30/20 09:24 Aspirin 325 Mg Enteric Tablet PO 325 mg DAILY JL Administration Atorvastatin Calcium 10 mg 12/19/20 09:00 12/30/20 09:24 Atorvastatin 10 Mg Tablet PO 10 mg DAILY JL Administration Bumetanide 2 mg 12/19/20 09:00 12/30/20 09:24 Bumetanide 1 Mg Tablet PO 2 mg DAILY JL Administration Dextrose 12.5 gm 12/18/20 21:09 Dextrose 50% 25 Gm/50 Ml Syringe IV PUSH PRN PRN Hypoglycemia Protocol Enoxaparin Sodium 40 mg 12/19/20 09:00 12/30/20 09:24 Enoxaparin 40 Mg/0.4 Ml Syringe SUB-Q 40 mg DAILY JL Administration Glipizide 5 mg 12/25/20 06:30 12/30/20 06:44 Glipizide 5 Mg Tablet PO 5 mg DAILY@0630 JL Administration Glucagon 1 mg 12/18/20 21:09 Glucagon For Inj 1 Mg Vial IM PRN PRN Hypoglycemia Protocol Glucose 15 gm 12/18/20 21:09 Glucose Oral Gel 15 Gm Of Glucse In 37.5 Gm Tube PO PRN PRN Hypoglycemia Protocol Dextrose 1,000 mls @ 100 mls/hr 12/18/20 21:09 Dextrose 5% 1,000 Ml IVPB PRN PRN Hypoglycemia Protocol Insulin Aspart 4 - 8 units 12/19/20 17:00 12/30/20 11:57 Insulin Aspart (*Bkc) 100 Units/Ml SUB-Q Not Given TIDWM JL Protocol Losartan Potassium 50 mg 12/30/20 09:00 12/30/20 09:25 Losartan Potassium 50 Mg Tablet PO 50 mg DAILY JL Administration M
[2020-12-30 17:03] LABS: Glucose Point of Care 144 (65-105)
[2020-12-30 19:50] LABS: Glucose Point of Care 206 (65-105)
[2020-12-30 21:59] VITALS: BP 142/77; PULSE 75; RESP 16; TEMP 36.8; O2SAT 99
[2020-12-31 06:00] VITALS: BP 148/83; PULSE 71; RESP 16; TEMP 36.6; O2SAT 100
[2020-12-31 06:24] LABS: Potassium 4.2 mmol/L (3.4-5.0)
[2020-12-31] MEDS: glipiZIDE 5 MG TABLET PO (06:31)
[2020-12-31 06:54] LABS: Glucose Point of Care 168 (65-105)
[2020-12-31] MEDS: MIRABEGRON 25 MG ER TABLET PO (08:03)
[2020-12-31] MEDS: ATORVASTATIN 10 MG TABLET PO (08:03)
[2020-12-31] MEDS: POTASSIUM CHLORIDE 20 MEQ TABLET.ER PO (08:04)
[2020-12-31] MEDS: ASPIRIN 325 MG ENTERIC TABLET PO (08:04)
[2020-12-31] MEDS: LOSARTAN POTASSIUM 50 MG TABLET PO (08:04)
[2020-12-31] MEDS: ENOXAPARIN 40 MG/0.4 ML SYRINGE SUB-Q (08:04)
[2020-12-31] MEDS: BUMETANIDE 1 MG TABLET 2 MG PO (08:04)
--- NOTE | 2020-12-31 13:43 | PM.DS ---
DS: Admitting Diagnosis Admitting Diagnosis Admitting Diagnosis: Right BKA DS: Discharge Diagnosis Discharge Diagnosis (1) Urinary incontinence: Code(s): R32 - Unspecified urinary incontinence Status: Acute Assessment and Plan: nursing to provide bladder management and bladder retraining. Urology consult. 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 for 10 days retrograde massage. And compression garments. Resolved (5) Diabetic neuropathy: Code(s): E11.40 - Type 2 diabetes mellitus with diabetic neuropathy, unspecified Status: Acute Assessment and Plan: Manage diabetes tightly to prevent further neuropathy. Glypizide added. Possible need for Victoza1.8 ( home med) (6) COPD (chronic obstructive pulmonary disease): Code(s): J44.9 - Chronic obstructive pulmonary disease, unspecified Status: Acute Assessment and Plan: monitor (7) CRI (chronic renal insufficiency): Code(s): N18.9 - Chronic kidney disease, unspecified Status: Acute Assessment and Plan: monitor (8) Uncontrolled diabetes mellitus: Code(s): E11.65 - Type 2 diabetes mellitus with hyperglycemia Status: Acute Assessment and Plan: Glypizide added. May trial Vicotoza 1.8 ( home med). And diabetic Education (9) PVD (peripheral vascular disease): Code(s): I73.9 - Peripheral vascular disease, unspecified Status: Acute Assessment and Plan: smoking cessation. (10) Hypoalbuminemia: Code(s): E88.09 - Other disorders of plasma-protein metabolism, not elsewhere classified Status: Acute Assessment and Plan: Dietary education (11) Hypocalcemia: Code(s): E83.51 - Hypocalcemia Status: Acute Assessment and Plan: replete as needed (12) ABLA (acute blood loss anemia): Code(s): D62 - Acute posthemorrhagic anemia Status: Acute Assessment and Plan: follow closely with possible transfusion of hemoglobin of less than 7 (13) HLD (hyperlipidemia): Code(s): E78.5 - Hyperlipidemia, unspecified Status: Acute Assessment and Plan: continue current regimen (14) HTN (hypertension): Code(s): I10 - Essential (primary) hypertension Status: Acute Assessment and Plan: Cozaar increased to 50 mg daily. DS: Summary Hospital Course Hospital Course: see dictation Time Spent with Patient Time attestation: Total time spent providing and/or coordinating discharge services: Chief Complaint: RIGHT BKA, UNCONTROLED DM Narrative: The patient is a 60 yo female with a past medical history of COPD,CRI, uncontrolled DM, HTN, HLD, and severe PVD who presented to [facility] on 12/07[facility]2020 with right lower extremity diabetic foot infection. Podiatry was consulted and patient underwent an I&D and midfoot amputation on 12/08/2020 with for acute osteomyelitis and septic arthritis. Infectious Disease Dr Sibley was also consulted and place the patient on IV antibiotics. The wound continued to deteriorate and vascular surgeon, Dr Ryan was consulted. On 12/11/2020 patient underwent a right below-knee amputation by Postoperatively patient experienced the followin. acute blood los
== END 2020-12-31 11:30 | disposition home health service (06) | DRG 561 ==
PROVIDERS: Nurse Practitioner Adult Health; Urology; Admitting Provider Physical Medicine & Rehabilitation; PCP Family Medicine; Visit Provider Physical Medicine & Rehabilitation
DX: Z47.81 Encounter for orthopedic aftercare following surgical amputation (principal); Z89.511 Acquired absence of right leg below knee; R32 Unspecified urinary incontinence; R35.0 Frequency of micturition; R31.29 Other microscopic hematuria; R39.15 Urgency of urination; T80.1XXD Vascular complications following infusion, transfusion and therapeutic injection, subsequent encounter; D63.1 Anemia in chronic kidney disease; E11.65 Type 2 diabetes mellitus with hyperglycemia; E11.51 Type 2 diabetes mellitus with diabetic peripheral angiopathy without gangrene; E11.42 Type 2 diabetes mellitus with diabetic polyneuropathy; E11.22 Type 2 diabetes mellitus with diabetic chronic kidney disease; E78.5 Hyperlipidemia, unspecified; E83.51 Hypocalcemia; I12.9 Hypertensive chronic kidney disease with stage 1 through stage 4 chronic kidney disease, or unspecified chronic kidney disease; J44.9 Chronic obstructive pulmonary disease, unspecified; E88.09 Other disorders of plasma-protein metabolism, not elsewhere classified; N18.9 Chronic kidney disease, unspecified; Z87.891 Personal history of nicotine dependence; Z79.4 Long term (current) use of insulin
CPT/HCPCS: 36415; 74018; 74178; 80048; 80053; 81001; 82948; 83036; 84132; 85025; 87086; 97110; 97161; 97166; 97530; 97535; 97542; A9270; J1650; J1815; Q9967